=== PATIENT | male | born 1960 | race Caucasian/White ===

== ENCOUNTER → 2016-05-31 | Outpatient (CLI) | payer OTHER ==
[2016-05-31 15:21] LABS: Basophils # (A) 0.1 k/uL (0-0.2); Basophils % (A) 1 %; CH 32.7; CHCM 35.3; Eosinophils # (A) 0.4 k/uL (0-0.7); Eosinophils % (A) 4 %; HCT 40.8 % (39.0-53.0); HDW 2.81; HGB 14.1 gm/dL (13.0-17.5); Luc % (Auto) 1; Lymphocytes # (A) 2.4 k/uL (1.0-4.8); Lymphocytes % (A) 25 %; MCH 32.1 pg (25.0-35.0); MCHC 34.5 g/dL (31.0-37.0); Mean Platelet Volume 6.9; Monocytes # (A) 0.6 k/uL (0-1.0); Monocytes % (A) 6 %; Neutrophils % (A) 63 %; RBC 4.38 m/uL (4.30-5.90); RDW 12.6 % (11.5-15.5); WBC 9.5 k/uL (3.8-10.6)
[2016-05-31 15:22] LABS: Appearance,Urine Clear (Clear); Bilirubin,Urine Negative (Negative); Glucose,Urine (UA) Negative (Negative); Ketones,Urine Negative (Negative); Leukocyte Esterase,Urine Negative (Negative); Nitrite,Urine Negative (Negative); PH, Urine 5.5 (5.0-8.0); Protein,Urine Negative (Negative); Specific Gravity,Urine 1.006 (1.001-1.035); UA Billing (MACRO vs. MICRO) CHEM; Urobilinogen,Urine <2.0 mg/dL (<2.0)
[2016-05-31 15:28] LABS: ALT 70 U/L (21-72); AST 40 U/L (17-59); Alkaline Phosphatase 112 U/L (38-126); Anion Gap 13 mmol/L; Blood Urea Nitrogen 20 mg/dL (9-20); Calcium 9.5 mg/dL (8.4-10.2); Carbon Dioxide 26 mmol/L (22-30); Chloride 105 mmol/L (98-107); Glucose 87 mg/dL (74-99); Non-African American GFR(MDRD) >60 (>60 ml/min/1.73 sqM); Potassium 4.3 mmol/L (3.5-5.1); Sodium 144 mmol/L (137-145); Total Bilirubin 0.5 mg/dL (0.2-1.3); Total Protein 7.1 g/dL (6.3-8.2)
[2016-05-31 15:33] LABS: Partial Thromboplastin Time 23.4 sec (22.0-30.0); Prothrombin Time 10.3 sec (9.0-12.0)
== END | disposition home or self-care (01) ==
LOC: LABPAT 15:01
PROVIDERS: ATTEND Orthopaedic Surgery
DX: Z01.812 Encounter for preprocedural laboratory examination (principal)
CPT/HCPCS: 80053; 81003; 85025; 85610; 85730; 87070

== ENCOUNTER 2016-06-02 11:22 | Emergency (ER) | payer OTHER ==
[2016-06-02 11:31] VITALS: TEMP 97.3
--- NOTE | 2016-06-02 11:50 | ED ---
General Adult HPI - General Chief complaint: Dizziness Stated complaint: FEELING FAINT Time Seen by Provider: 06/02/16 11:37 Source: patient, RN notes reviewed Mode of arrival: wheelchair - History of Present Illness Initial comments: Patient is a 55-year-old male who presents emergency room today with a chief complaint of feeling dizzy lightheaded. He does admit that he was in one of the classrooms here at [facility] for education of a hip replacement. He states that he began feeling a little lightheaded in the class got up and went outside to get a cup of coffee. States symptoms seem to progress he went back to tell his instructor. States he was taking over here to the emergency room. States his symptoms have completely resolved at this time. He does admit that he felt some numbness tingling to his hands bilaterally. States the entire event lasted approximately 10 minutes. He does admit that he felt a little lightheaded at times the past but never lasted very long. Patient states he did have breakfast. Patient denies any complaints or symptoms currently at this time. Patient denies any recent fever, chills, shortness of breath, chest pain, back pain, abdominal pain, nausea or vomiting, numbness or tingling, dysuria or hematuria, constipation or diarrhea, headaches or visual changes, or any other complaints. - Related Data Home Medications Medication Instructions Recorded Confirmed Levothyroxine Sodium [Synthroid] 200 mcg PO DAILY 04/21/15 06/02/16 Ibuprofen [Motrin] 800 mg PO TID PRN 05/31/16 06/02/16 Atorvastatin Calcium [Lipitor] 10 mg PO DAILY 06/01/16 06/02/16 HYDROcodone/APAP 7.5-325MG [[place] 1 tab PO BID PRN 06/02/16 06/02/16 7.5-325] Allergies Allergy/AdvReac Type Severity Reaction Status Date / Time No Known Allergies Allergy Verified 06/02/16 12:28 Review of Systems ROS Statement: Those systems with pertinent positive or pertinent negative responses have been documented in the HPI. ROS Other: All systems not noted in ROS Statement are negative. 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 Other SX: RIGHT HAND-INDEX/MIDDLE FINGER sx for injury, RIGHT WRIST sx for injury, LEFT KNEE ARTHROSCOPIC,RIGHT AND LEFT SHOULDER rotator cuff repairs, Past Anesthesia/Blood Transfusion Reactions: No Reported Reaction, Motion Sickness Additional Past Anesthesia/Blood Transfusion Reaction / Comment(s): Pt has never had blood transfusion. Past Psychological History: No Psychological Hx Reported Additional Psychological History / Comment(s): Pt resides with his spouse. He is normally independent. He drives. He uses no assistive devices. Smoking Status: Never smoker Past Alcohol Use History: None Reported Past Drug Use History: None Reported - Past Family History Mother Family Medical History: Osteoarthritis (OA), Thyroid Disorder Additional Family Medical History / Comment(s): Mother is alive and 73 yrs old. She has back problems with surgery Father Family Medical History: CVA/TIA, Diabetes Mellitus, Osteoarthritis (OA) Additional Family Medical History / Comment(s): Father had gout, past alcoholism - he is 77 yrs old. General Exam - General Exam Comments Initial Comments: General: The patient is awake and alert, in no distress, and does not appear acutely ill. Eye: Pupils are equal, round and reactive to light, extra-ocular movements are intact. No nystagmus. There is normal conjunctiva bilaterally. No signs of icterus. Ears, nose, mouth and throat: There are moist mucous membranes and no oral lesions. Neck: The neck is supple, there is no tenderness or JVD. Cardiovascular: There is a regular rate and rhythm. No murmur, rub or gallop is appreciated. Respiratory: Lungs are clear to auscultation, respirations are non-labored, breath sounds are equal. No wheezes, stridor, rales, or rhonchi. Gastrointestinal: Soft, non-distended, non-tender abdomen without masses or organomegaly noted. There is no rebound or guarding present. No CVA tenderness. Bowel sounds are unremarkable. Musculoskeletal: Normal ROM, no tenderness. Strength 5/5. Sensation intact. Pulses equal bilaterally 2+. Neurological: A&O x 3. CN II-XII intact, There are no obvious motor or sensory deficits. Coordination appears grossly intact. Speech is normal. Skin: Skin is warm and dry and no rashes or lesions are noted. Psychiatric: Cooperative, appropriate mood & affect, normal judgment. Course Vital Signs 06/02/16 06/02/16 11:28 13:41 Temperature 97.3 F L Pulse Rate 72 Pulse Rate [ 80 Right Sitting] Pulse Rate [ 88 Right Standing] Pulse Rate [ 68 Right Supine] Respiratory 20 18 Rate Blood Pressure 121/76 Blood Pressure 126/70 [Right Arm Sitting] Blood Pressure 129/73 [Right Arm Standing] Blood Pressure 120/61 [Right Arm Supine] O2 Sat by Pulse 100 97 Oximetry EKG Findings - EKG Comments: EKG Findings:: EKG performed at 1202: Shows sinus bradycardia 54 beats per minute. [place] interval 116. QRS 88. QT/QTc 428/45. No acute ST changes. Medical Decision Making - Medical Decision Making Case discussed in detail with attending physician Dr. Hyde. Patient reexamined at this time shows no signs of distress. His EKG shows normal sinus rhythm. EKG heart rate 54 bpm. Patient was in the 70s triaged. Orthostatic vitals performed does show mild elevation of heart rate. Blood pressure stable. Patient given fluids here in emergency room. He denies any complaints or symptoms at this time. States like be discharged home. Patient will be discharged home advised follow-up family doctor in the next 1-2 days. He is advised return if any symptoms increase or worsen or for any other concerns. - Lab Data Result diagrams: 06/02/16 12:04 06/02/16 12:04 Lab Results 06/02/16 06/02/16 06/02/16 Range/Units 12:04 12:04 12:06 WBC 11.4 H (3.8-10.6) k/uL RBC 4.82 (4.30-5.90) m/uL Hgb 15.4 (13.0-17.5) gm/dL Hct 45.0 (39.0-53.0) % MCV 93.4 (80.0-100.0) fL MCH 31.9 (25.0-35.0) pg MCHC 34.2 (31.0-37.0) g/dL RDW 12.5 (11.5-15.5) % Plt Count 352 (150-450) k/uL Neutrophils % 58 % Lymphocytes % 30 % Monocytes % 7 % Eosinophils % 3 % Basophils % 1 % Neutrophils # 6.7 (1.3-7.7) k/uL Lymphocytes # 3.5 (1.0-4.8) k/uL Monocytes # 0.8 (0-1.0) k/uL Eosinophils # 0.3 (0-0.7) k/uL Basophils # 0.1 (0-0.2) k/uL Sodium 143 (137-145) mmol/L Potassium 4.5 (3.5-5.1) mmol/L Chloride 105 (98-107) mmol/L Carbon Dioxide 24 (22-30) mmol/L Anion Gap 14 mmol/L BUN 20 (9-20) mg/dL Creatinine 0.86 (0.66-1.25) mg/dL Est GFR (MDRD) Af Amer >60 (>60 ml/min/1.73 sqM) Est GFR (MDRD) Non-Af >60 (>60 ml/min/1.73 sqM) Glucose 104 H (74-99) mg/dL POC Glucose (mg/dL) 100 H (75-99) mg/dL POC Glu Cut Off Saw Operator Metal ID Carissa, Mary Grace Calcium 10.0 (8.4-10.2) mg/dL Total Bilirubin 0.7 (0.2-1.3) mg/dL AST 35 (17-59) U/L ALT 65 (21-72) U/L Alkaline Phosphatase 102 (38-126) U/L Total Protein 7.4 (6.3-8.2) g/dL Albumin 4.7 (3.5-5.0) g/dL Disposition Clinical Impression: Lightheaded Disposition: HOME SELF-CARE Condition: Good Instructions: Dizziness (ED) Additional Instructions: Please increase oral fluids as discussed. Please follow-up family doctor over the next 2 days. Please return to emergency room if any symptoms increase worsen or for any other concerns. Time of Disposition: 13:45
[2016-06-02 12:09] LABS: Glucose,Whole Blood 100 mg/dL (75-99)
--- NOTE | 2016-06-02 12:23 | XR ---
EXAMINATION TYPE: XR chest 2V DATE OF EXAM: 06/02/2016 12:19 PM COMPARISON: NONE HISTORY: Dizziness and nausea FINDINGS: The lungs are clear and there is no pneumothorax, pleural effusion, or focal pneumonia. Hypertrophi c change of the spine noted. IMPRESSION: 1. No acute process.
[2016-06-02 12:29] LABS: Basophils # (A) 0.1 k/uL (0-0.2); Basophils % (A) 1 %; CH 33.1; CHCM 35.6; Eosinophils # (A) 0.3 k/uL (0-0.7); Eosinophils % (A) 3 %; HDW 2.79; HGB 15.4 gm/dL (13.0-17.5); Luc # (Auto) 0.18; Luc % (Auto) 2; Lymphocytes # (A) 3.5 k/uL (1.0-4.8); Lymphocytes % (A) 30 %; MCH 31.9 pg (25.0-35.0); MCHC 34.2 g/dL (31.0-37.0); MCV 93.4 fL (80.0-100.0); Monocytes # (A) 0.8 k/uL (0-1.0); Monocytes % (A) 7 %; Neutrophils # (A) 6.7 k/uL (1.3-7.7); Neutrophils % (A) 58 %; RBC 4.82 m/uL (4.30-5.90); RDW 12.5 % (11.5-15.5); WBC 11.4 k/uL (3.8-10.6); WBC (Perox) 11.79
[2016-06-02 12:41] LABS: ALT 65 U/L (21-72); AST 35 U/L (17-59); Alkaline Phosphatase 102 U/L (38-126); Anion Gap 14 mmol/L; Blood Urea Nitrogen 20 mg/dL (9-20); Carbon Dioxide 24 mmol/L (22-30); Chloride 105 mmol/L (98-107); Glucose 104 mg/dL (74-99); Non-African American GFR(MDRD) >60 (>60 ml/min/1.73 sqM); Potassium 4.5 mmol/L (3.5-5.1); Sodium 143 mmol/L (137-145); Total Bilirubin 0.7 mg/dL (0.2-1.3); Total Protein 7.4 g/dL (6.3-8.2)
[2016-06-02 13:42] VITALS: BP 120/61; PULSE 68; RESP 18
[2016-06-02] MEDS ORDERED: SODIUM CHLORIDE 0.9% 500 ML IV ONE (13:42)
== END 2016-06-02 14:33 | disposition home or self-care (01) ==
LOC: EC 11:22
DX: R42 Dizziness and giddiness (principal); E07.9 Disorder of thyroid, unspecified; Z79.899 Other long term (current) drug therapy
CPT/HCPCS: 36415; 71020; 80053; 85025; 93005; 96360; 99284

== ENCOUNTER → 2016-06-02 | Outpatient (CLI) | payer OTHER ==
[2016-06-02 11:02] LABS: Prostate Specific Antigen 2.78 ng/mL (0.00-4.00)
== END | disposition home or self-care (01) ==
LOC: LABWHC1 06:39
PROVIDERS: ATTEND Family Medicine
DX: Z00.00 Encounter for general adult medical examination without abnormal findings (principal)
CPT/HCPCS: 36415; 80061; 84153

== ENCOUNTER 2016-06-12 06:23 | Inpatient (IN) | payer OTHER ==
[2016-05-31 16:52] VITALS: BMI 33.3
[~2016-06-12 06:23] MED LIST: ACETAMINOPHEN TAB 500 MG TAB PO ONE; MELOXICAM 7.5 MG TAB PO ONE; ONDANSETRON 4 MG/2 ML VIAL IVP ONE; TRANEXAMIC ACID 1,000 MG in SODIUM CHLORIDE 0.9% 100 ML IVPB ONE; ceFAZolin 2 GM in SODIUM CHLORIDE 0.9% 100 ML IVPB ONE
[2016-06-12] MEDS ORDERED: ONDANSETRON 4 MG/2 ML VIAL IVP ONE ×2 (06:57→07:08)
[2016-06-12] MEDS ORDERED: SCOPOLAMINE 1.5MG/72HR PATCH TRANSDERM ONE ×2 (06:57→07:08)
[2016-06-12] MEDS ORDERED: MIDAZOLAM 2 MG/2 ML VIAL IV PRN (06:57)
[2016-06-12] MEDS ORDERED: HYDROmorphone 1 MG/ML 1 ML SYRINGE IVP PRN ×3 (06:57→10:31)
[2016-06-12] MEDS ORDERED: LIDOCAINE 1% 20 ML VIAL (10MG/ML) FOR IV START INTRADERMA PRN (06:57)
[2016-06-12] MEDS ORDERED: DEXAMETHASONE SOD PHOSPHATE 10 MG/ML 1 ML VIAL IV ONE ×2 (06:57→07:07)
[2016-06-12] MEDS ORDERED: LACTATED RINGERS 1,000 ML IV ONE ×4 (07:00→09:08)
[2016-06-12] MEDS ORDERED: LIDOCAINE 1% 20 ML VIAL (10MG/ML) FOR IV START INTRADERMA ONE (07:08)
[2016-06-12] MEDS ORDERED: ROPIVACAINE 246.25 MG, EPINEPHrine 0.5 MG, KETOROLAC 30 MG, cloNIDine HCL/PF 80 MCG, WA... MISCELLANE STA ×5 (07:50)
[2016-06-12] MEDS ORDERED: fentaNYL (PF) 50 MCG/ML 2 ML AMP ONE (08:10)
[2016-06-12] MEDS ORDERED: TRANEXAMIC ACID 1,000 MG/10 ML VIAL ONE (08:10)
[2016-06-12] MEDS ORDERED: ePHEDrine 50 MG/ML 1 ML AMP ONE (08:10)
[2016-06-12] MEDS ORDERED: SODIUM CHLORIDE 0.9% 100 ML BAG ONE (08:10)
[2016-06-12] MEDS ORDERED: PROPOFOL 10 MG/ML 20 ML VIAL IV ONE (08:10)
[2016-06-12] MEDS ORDERED: MIDAZOLAM 2 MG/2 ML VIAL ONE (08:10)
[2016-06-12] MEDS ORDERED: ceFAZolin 3,000 MG in SODIUM CHLORIDE 0.9% IRRIGATIO 3,000 ML IRRIGATION ONE (10:09)
[2016-06-12] MEDS ORDERED: ONDANSETRON 4 MG/2 ML VIAL IVP PRN (10:31)
[2016-06-12] MEDS ORDERED: MAGNESIUM HYDROXIDE 2,400 MG/10 ML CUP PO PRN (10:31)
[2016-06-12] MEDS ORDERED: ACETAMINOPHEN TAB 325 MG TAB PO PRN (10:31)
[2016-06-12] MEDS ORDERED: TEMAZEPAM 15 MG CAP PO PRN (10:31)
[2016-06-12] MEDS ORDERED: HYDROcodone/APAP 5-325MG 1 EACH TAB PO PRN (10:31)
[2016-06-12] MEDS ORDERED: NALOXONE 0.4 MG/ML 1 ML VIAL IV PRN (10:31)
--- NOTE | 2016-06-12 10:48 | XR ---
EXAMINATION TYPE: XR Hip Limited RT DATE OF EXAM: 06/12/2016 10:43 AM COMPARISON: NONE HISTORY: Post hip surgery TECHNIQUE: Single AP view right hip FINDINGS: Right hip prosthesis has been placed. No acute fractures are evident. Postsurgical changes are within the soft tissues. IMPRESSION: 1. Normal post right hip replacement.
[2016-06-12] MEDS: LACTATED RINGERS 1,000 ML IV SCH ×2 (11:12→20:52)
[2016-06-12] MEDS: HYDROcodone/APAP 5-325MG 1 EACH TAB PO PRN ×2 (12:49→18:02)
[2016-06-12] MEDS: hydrOXYzine PAMOATE 25 MG CAP PO PRN ×2 (12:50→18:03)
[2016-06-12] MEDS: HYDROmorphone 1 MG/ML 1 ML SYRINGE IVP PRN ×2 (14:16→22:38)
[2016-06-12] MEDS: LEVOTHYROXINE 100 MCG TAB PO SCH (15:54)
--- NOTE | 2016-06-12 16:13 | CONS ---
DATE OF CONSULTATION: 06/12/2016 REASON FOR CONSULTATION: Medical management requested by Dr. Shaw. CONSULTATION: This is a pleasant 55-year-old patient of Dr. Fitch who has undergone right total hip arthroplasty. His is at the bedside. Post procedure patient is comfortable. No chest pain, shortness of breath, nausea, vomiting. Patient's chronic stable medical conditions include hyperlipidemia, hypothyroid. Denies any cardiac history. REVIEW OF SYSTEMS: CONSTITUTIONAL: None. HEENT: None. RESPIRATORY: None. CARDIOVASCULAR: None. GASTROINTESTINAL: None. GENITOURINARY: None. MUSCULOSKELETAL: Pain in the joints. DERMATOLOGICAL: None. HEMATOLOGICAL: None. LYMPHATIC: None. PSYCHIATRY: None. NEUROLOGICAL: None. PAST MEDICAL HISTORY: 1. Hypertension. 2. Hyperlipidemia. 3. Hypothyroid. 4. Arthritis in lower back. PAST SURGICAL HISTORY: 1. Left total hip arthroplasty. 2. Right hand middle and index finger surgery for injury. 3. Right wrist surgery. 4. Right and left shoulder rotator cuff repair. SOCIAL HISTORY: . Never smoked. No alcohol. HOME MEDICATIONS: 1. Synthroid 200 mcg a day. 2. Motrin 800 mg p.o. t.i.d. p.r.n. 3. [place] 7.5 one tablet p.o. b.i.d. p.r.n. 4. Lipitor 10 mg p.o. daily. ALLERGIES: NONE. On examination, temperature 97.9, pulse 81, respiration 16, blood pressure 164/87, pulse ox 97% on room air. Repeat blood pressure 114/61. GENERAL APPEARANCE: Well built; BMI of 33.3. Sitting up, comfortable. EYES: Pupils equal. Conjunctivae normal. HEENT: External appearance of nose and ears normal. Oral cavity normal. NECK: JVD not raised. Mass not palpable. RESPIRATORY: Effort normal. Lungs are clear. CARDIOVASCULAR: First and second sounds normal. No edema. ABDOMEN: Soft, non-tender. Liver and spleen not palpable. LYMPHATIC: No lymph node palpable in neck or axillae. PSYCHIATRY: Alert and oriented x3. Mood and affect normal. NEUROLOGICAL: Pupils equal. Cranial nerves grossly intact. Power and sensation grossly intact. INVESTIGATIONS: Blood work from 05/31/16 shows a white count of 9.5, hemoglobin 14.1, potassium 4.3. BUN and creatinine are normal. Triglycerides 258. ASSESSMENT: 1. Right total hip arthroplasty. 2. Obesity; body mass index of 33.3. 3. Hypothyroidism, chronic. 4. Hypertriglyceridemia. PLAN: Home medications will be resumed. Patient is on aspirin 325 twice a day for DVT prophylaxis per Dr. Shaw. Care was discussed with the patient and his . Questions were answered. Thank you, Dr. Shaw.
[2016-06-12] MEDS: ceFAZolin 2 GM in SODIUM CHLORIDE 0.9% 100 ML IVPB SCH (16:34)
[2016-06-12] MEDS: SENNOSIDES-DOCUSATE SODIUM 1 EACH TAB PO SCH (20:51)
[2016-06-12] MEDS: ASPIRIN 325 MG TAB PO SCH (20:51)
[2016-06-13] MEDS: ceFAZolin 2 GM in SODIUM CHLORIDE 0.9% 100 ML IVPB SCH (00:49)
[2016-06-13] MEDS: HYDROcodone/APAP 5-325MG 1 EACH TAB PO PRN (05:29)
[2016-06-13] MEDS: LEVOTHYROXINE 100 MCG TAB PO SCH (05:29)
[2016-06-13] MEDS: hydrOXYzine PAMOATE 25 MG CAP PO PRN (05:30)
[2016-06-13 07:56] LABS: Basophils % (A) 0 %; CH 32.6; CHCM 34.1; Eosinophils % (A) 0 %; HDW 2.66; Luc % (Auto) 1; Lymphocytes # (A) 2.1 k/uL (1.0-4.8); Lymphocytes % (A) 19 %; MCH 32.2 pg (25.0-35.0); MCHC 33.5 g/dL (31.0-37.0); MCV 96.1 fL (80.0-100.0); Monocytes # (A) 0.8 k/uL (0-1.0); Monocytes % (A) 7 %; Neutrophils # (A) 8.5 k/uL (1.3-7.7); Neutrophils % (A) 73 %; RBC 3.64 m/uL (4.30-5.90); RDW 12.9 % (11.5-15.5); WBC 11.5 k/uL (3.8-10.6)
[2016-06-13 07:58] LABS: HGB 11.7 gm/dL (13.0-17.5)
[2016-06-13] MEDS: LACTATED RINGERS 1,000 ML IV SCH (08:02)
[2016-06-13] MEDS: ATORVASTATIN 10 MG TAB PO SCH (08:21)
[2016-06-13] MEDS: FAMOTIDINE 20 MG TAB PO SCH (08:21)
[2016-06-13] MEDS: MULTIVITAMINS, THERA 1 EACH TAB PO SCH (08:21)
[2016-06-13] MEDS: ASPIRIN 325 MG TAB PO SCH ×2 (08:21→21:34)
[2016-06-13] MEDS: MELOXICAM 7.5 MG TAB PO SCH (08:49)
[2016-06-13] MEDS: HYDROmorphone 1 MG/ML 1 ML SYRINGE IVP PRN (10:01)
[2016-06-13] MEDS ORDERED: HYDROcodone/APAP 7.5-325MG 1 EACH TAB PO PRN ×2 (10:20)
--- NOTE | 2016-06-13 11:00 | P.CONS ---
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 Keane is a pleasant 55 year old male with multiple sites of arthritis who is status post right total hip arthroplasty on 06/12/2016 after multiple non surgical attempts to improve his function. He has previously undergone left total hip with post operative radiation for prophylaxis of heterotropic ossification. He is now being seen for evaluation of radiation for his right hip. He describes minimal past medical history including hyperlipiedmia, arthritis, and hypothyroidism. His only previous radiation was to his contralateral hip-left. He denies any chest pain, shortness of breathe, nausea, vomiting. His pain is appropriately controlled. 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 Other SX: RIGHT HAND-INDEX/MIDDLE FINGER sx for injury, RIGHT WRIST sx for injury, LEFT KNEE ARTHROSCOPIC,RIGHT AND LEFT SHOULDER rotator cuff repairs, Past Anesthesia/Blood Transfusion Reactions: No Reported Reaction, Motion Sickness Additional Past Anesthesia/Blood Transfusion Reaction / Comm: Pt has never had blood transfusion. Past Psychological History: No Psychological Hx Reported Additional Psychological History / Comment(s): Pt resides with his spouse. He is normally independent. He drives. He uses no assistive devices. Smoking Status: Never smoker Past Alcohol Use History: None Reported Past Drug Use History: None Reported - Past Family History Mother Family Medical History: Osteoarthritis (OA), Thyroid Disorder Additional Family Medical History / Comment(s): Mother is alive and 73 yrs old. She has back problems with surgery Father Family Medical History: CVA/TIA, Diabetes Mellitus, Osteoarthritis (OA) Additional Family Medical History / Comment(s): Father had gout, past alcoholism - he is 77 yrs old. Medications and Allergies Home Medications Medication Instructions Recorded Confirmed Type Levothyroxine Sodium [Synthroid] 200 mcg PO DAILY 04/21/15 06/12/16 History Ibuprofen [Motrin] 800 mg PO TID PRN 05/31/16 06/12/16 History Atorvastatin Calcium [Lipitor] 10 mg PO DAILY 06/01/16 06/12/16 History HYDROcodone/APAP 7.5-325MG [[place] 1 tab PO BID PRN 06/02/16 06/12/16 History 7.5-325] Allergies Allergy/AdvReac Type Severity Reaction Status Date / Time No Known Allergies Allergy Verified 06/12/16 11:17 Physical Exam Vitals: Vital Signs Temp Pulse Resp BP Pulse Ox 06/13/16 07:14 97.5 F L 60 16 114/49 95 06/13/16 01:40 98.2 F 50 L 18 110/55 98 06/12/16 19:47 98.1 F 57 L 18 110/55 95 06/12/16 12:45 67 112/66 06/12/16 12:30 57 L 110/62 06/12/16 12:15 55 L 116/60 06/12/16 12:00 54 L 107/54 06/12/16 11:45 60 112/68 06/12/16 11:30 60 109/74 06/12/16 11:15 57 L 106/73 06/12/16 11:00 98.0 F 66 16 114/61 92 L 06/12/16 10:54 60 18 106/58 94 L Intake and Output 06/12/16 06/13/16 06/13/16 22:59 06:59 14:59 Intake Total 1000 Output Total 1500 Balance 1000 -1500 Intake: IV 1000 Lactated Ringers 1,000 ml 900 @ 100 mls/hr IV .Q10H SAMMY Rx#:[id number] ceFAZolin 2 gm In Sodium 100 Chloride 0.9% 100 ml @ 100 mls/hr IVPB ONCE ONE Rx#:[id number] Output: Urine 1500 Uretheral (Ling) 1500 Other: Voiding Method Indwelling Catheter - Constitutional General appearance: average body habitus - EENT Eyes: EOMI - Neck Neck: normal ROM - Respiratory Respiratory: bilateral: CTA - Cardiovascular Rhythm: regular - Musculoskeletal Musculoskeletal: right sided weakness Results CBC & Chem 7: 01/17/17 06:55 Labs: Abnormal Lab Results - Last 24 Hours (Table) 06/13/16 Range/Units 06:55 WBC 11.5 H (3.8-10.6) k/uL RBC 3.64 L (4.30-5.90) m/uL Hgb 11.7 L D (13.0-17.5) gm/dL Hct 35.0 L (39.0-53.0) % Neutrophils # 8.5 H (1.3-7.7) k/uL Assessment and Plan Plan: Mr. Keane is a 55 year old male status post right hip arthroplasty who now presents for external beam radiation to his right hip joint and surrounding soft tissue to decrease his risk for heterotropic ossification. Postoperative RT has been shown to be an effective prophylactic treatment to prevent heterotropic bone from partially or completly ankylosing the joint space, causing pain and/or limiting the range of motion. We therefore intend on delivering a single fraction of external beam radiation to a total dose of 700cGy in 1 fraction with 23MV photons in an AP/PA beam arrangement. The patient will be treated prior to returning to his hospital bed, this morning . A discussion of risks and side effects of treatment was had including, but not limited to: Skin redness, irritation, decreased sperm counts, risk of secondary malignancy. A consent was signed prior to simulation.
[2016-06-13] MEDS ORDERED: HYDROcodone/APAP 10-325MG 1 EACH TAB PO PRN (15:02)
--- NOTE | 2016-06-13 16:55 | P.PN ---
Subjective Principal diagnosis: Status post right total hip arthroplasty This is a pleasant 55-year-old gentleman who is status post right total hip arthroplasty. Today's postoperative day #1. The patient is seen and evaluated at bedside this afternoon. He had some difficulty with pain control earlier today and his [place] dose has been increased to 7.5 mg. He otherwise has no other complaints. He denies nausea or vomiting. No lightheadedness or shortness of breath. He did undergo radiation today. Objective - Vital Signs Vital signs: Vital Signs Temp 97.7 F 06/13/16 14:15 Pulse 52 L 06/13/16 14:15 Resp 17 06/13/16 14:15 BP 111/52 06/13/16 14:15 Pulse Ox 93 L 06/13/16 14:15 Intake & Output 06/12/16 06/13/16 06/13/16 18:59 06:59 18:59 Intake Total 4925 1000 580 Output Total 1700 1700 Balance 3225 1000 -1120 Weight 99.337 kg Intake: IV 4800 1000 100 Lactated Ringers 1,000 ml 900 100 @ 100 mls/hr IV .Q10H SAMMY Rx#:[id number] ceFAZolin 2 gm In Sodium 100 Chloride 0.9% 100 ml @ 100 mls/hr IVPB ONCE ONE Rx#:[id number] Oral 125 480 Output: Urine 1350 1700 Uretheral (Ling) 1500 Estimated Blood Loss 350 Other: Voiding Method Indwelling Catheter Indwelling Catheter - Exam The patient does not appear in acute distress. Alert and orientated 3. Dressing is clean dry and intact. Incision appears fine with no erythema or active drainage. Calf is soft and nontender. Good foot and ankle motion without difficulty. Sensation and circulatory status is intact. - Labs CBC & Chem 7: 06/13/16 06:55 Labs: Abnormal Lab Results - Last 24 Hours (Table) 06/13/16 Range/Units 06:55 WBC 11.5 H (3.8-10.6) k/uL RBC 3.64 L (4.30-5.90) m/uL Hgb 11.7 L D (13.0-17.5) gm/dL Hct 35.0 L (39.0-53.0) % Neutrophils # 8.5 H (1.3-7.7) k/uL Assessment and Plan (1) Primary osteoarthritis of right hip Status: Acute (2) Status post right hip replacement Status: Acute Plan: Continue with routine postoperative care. Physical therapy, pain control and Anticoagulation. Appreciate input from medicine.
[2016-06-13] MEDS: HYDROcodone/APAP 10-325MG 1 EACH TAB PO PRN ×2 (17:08→23:02)
--- NOTE | 2016-06-13 18:23 | PN ---
DATE OF SERVICE: 06/13/2016 PRESENTING COMPLAINT: Right hip surgery. INTERVAL HISTORY: Patient is status post right hip surgery, doing well. No chest pain, shortness of breath. No nausea, vomiting. Comfortable. Doing well. Review of systems done for constitutional, cardiovascular, GI, pulmonary; relevant findings as above. Current medications are reviewed. On examination, temperature 97.5, pulse 66, respiration 16, blood pressure 104/49, pulse ox 95% on room air. GENERAL APPEARANCE: Sitting up in a chair, comfortable. EYES: Pupils equal. Conjunctivae normal. NECK: JVD not raised. Mass not palpable. RESPIRATORY: Effort normal. Lungs are clear. CARDIOVASCULAR: First and second sounds normal. No edema. ABDOMEN: Soft. Nontender. Liver and spleen not palpable. PSYCHIATRY: Alert and oriented times. Mood and affect normal. INVESTIGATIONS: Hemoglobin 11.7. White count 11.5. ASSESSMENT: 1. Right total hip arthroplasty. 2. Obesity, body mass index of 33.3. 3. Hypothyroidism, chronic. 4. Hypertriglyceridemia. 5. Acute blood loss anemia as expected from surgery. PLAN: The patient is stable. Continue current medication and treatment plan. Care was discussed with the patient.
[2016-06-13 19:16] VITALS: RESP 16
[2016-06-13] MEDS: SENNOSIDES-DOCUSATE SODIUM 1 EACH TAB PO SCH (21:34)
[2016-06-14] MEDS: HYDROcodone/APAP 10-325MG 1 EACH TAB PO PRN ×2 (05:14→09:59)
[2016-06-14] MEDS: LEVOTHYROXINE 100 MCG TAB PO SCH (05:40)
--- NOTE | 2016-06-14 08:04 | P.DS ---
Providers Date of admission: 06/12/16 06:23 Expected date of discharge: 06/14/16 Attending physician: Gilbert Shaw Consults: 06/12/16 10:31 Consult Physician Routine Consulting Provider: Andrew Alfaro Consult Reason/Comments: medical management Do you want consulting provider notified?: Yes 06/12/16 16:08 Consult Physician Routine Consulting Provider: Jose Manuel Lou Consult Reason/Comments: radiation tx right hip Do you want consulting provider notified?: Yes Primary care physician: Luis Fitch - Discharge Diagnosis(es) (1) Primary osteoarthritis of right hip Current Visit: Yes Status: Acute (2) Status post right hip replacement Current Visit: Yes Status: Acute Hospital Course: This is a 55-year-old male with known history of degenerative arthritis of the right hip. The patient presents for evaluation. After discussion and consideration patient elects to proceed with total hip arthroplasty. The patient is seen preoperatively by Dr. Fitch and cleared for surgery. Patient is admitted to [facility] on 06/12/2016 for total hip arthroplasty. The procedures performed without complication or sequelae. The patient is doing well postoperatively. Labs and vital signs are stable on day of discharge. On day of discharge patient's hip incision is healing well. There is minimal erythema. There is no drainage noted at this time. There is minimal soft tissue swelling to the hip and thigh. Patient has full foot and ankle motion without difficulty or pain. Neurovascular status to the right lower extremity is intact. Patient is discharged to home in good condition. Please see med rec for accurate list of home medications. Plan - Discharge Summary New Discharge Prescriptions: Aspirin 325 mg PO BID #120 tab HYDROcodone/APAP 10-325MG [[place] 10-325] 1 - 2 each PO Q6H PRN #90 tab PRN Reason: Pain Sennosides-Docusate Sodium [Senokot-S] 1 tab PO BID #60 tablet Discharge Medication List Levothyroxine Sodium [Synthroid] 200 mcg PO DAILY 04/21/15 [History] Ibuprofen [Motrin] 800 mg PO TID PRN 05/31/16 [History] Atorvastatin Calcium [Lipitor] 10 mg PO DAILY 06/01/16 [History] HYDROcodone/APAP 7.5-325MG [[place] 7.5-325] 1 tab PO BID PRN 06/02/16 [History] Aspirin 325 mg PO BID #120 tab 06/14/16 [Rx] HYDROcodone/APAP 10-325MG [[place] 10-325] 1 - 2 each PO Q6H PRN #90 tab 06/14/16 [Rx] Sennosides-Docusate Sodium [Senokot-S] 1 tab PO BID #60 tablet 06/14/16 [Rx] Follow up Appointment(s)/Referral(s): Gilbert Shaw MD [STAFF PHYSICIAN] - 2 Weeks Patient Instructions/Handouts: *Surgery [facility] - Scopalamine Patch Instructions Activity/Diet/Wound Care/Special Instructions: No home care - Schedule outpatient therapy appointment with [facility] - [phone] Walker - has at home 50% wt bearing w walker May shower if no drainage from incision. Discharge Disposition: HOME SELF-CARE
[2016-06-14 08:13] VITALS: BP 124/61; PULSE 64; TEMP 98.7
[2016-06-14] MEDS: FAMOTIDINE 20 MG TAB PO SCH (09:58)
[2016-06-14] MEDS: ATORVASTATIN 10 MG TAB PO SCH (09:58)
[2016-06-14] MEDS: MELOXICAM 7.5 MG TAB PO SCH (09:58)
[2016-06-14] MEDS: ASPIRIN 325 MG TAB PO SCH (09:58)
[2016-06-14] MEDS: hydrOXYzine PAMOATE 25 MG CAP PO PRN (10:00)
[2016-06-14] MEDS: MULTIVITAMINS, THERA 1 EACH TAB PO SCH (13:06)
--- NOTE | 2016-06-14 20:43 | PN ---
DATE OF SERVICE: 06/14/2016 PRESENTING COMPLAINT: Right hip surgery. INTERVAL HISTORY: This patient is status post right hip surgery, doing well. Saw the patient earlier today. Comfortable. No chest pain or shortness of breath. No nausea or vomiting. Did tolerate his diet. Review of systems done for constitutional, cardiovascular, GI, pulmonary; relevant findings as above. Current medications are reviewed. On examination, temperature 98.7, pulse 64, respiration 16, blood pressure 120/61, pulse ox 95% on room air. GENERAL APPEARANCE: Sitting in a chair, comfortable. EYES: Pupils equal. Conjunctivae normal. NECK: JVD not raised. Mass not palpable. RESPIRATORY: Effort normal. Lungs are clear. CARDIOVASCULAR: First and second sounds normal. No edema. ABDOMEN: Soft, nontender. Liver and spleen not palpable. PSYCHIATRY: Alert and oriented x3. Mood and affect normal. INVESTIGATIONS: No blood work from today. ASSESSMENT: 1. Right total hip arthroplasty. 2. Obesity; body mass index 33.3. 3. Hypothyroidism, chronic. 4. Hypertriglyceridemia. 5. Acute blood loss anemia, as expected from surgery. PLAN: Stable. Continue current medication and treatment plan. Will follow.
--- NOTE | 2016-06-15 13:23 | P.OP ---
Date of Procedure: 06/12/16 Procedure(s) Performed: PREOPERATIVE DIAGNOSIS: Right hip severe osteoarthritis POSTOPERATIVE DIAGNOSIS: Right hip severe osteoarthritis OPERATION: Right hip total replacement arthroplasty (uncemented implantation with metal on polyethylene articulation). ANESTHESIA: Spinal ESTIMATED BLOOD LOSS: 350 ml. DATA GOVERNANCE CONSULTANT: Shira Burks PA-C (assistance with: patient positioning, retraction, exposure, hemostasis, leg positioning, implantation, irrigation, closure, dressing) COMPLICATIONS: None apparent. COMPONENTS IMPLANTED: Aniyah Continuum acetabular cup with cluster holes; 15 elevated liner, 32 mm id; Aniyah VerSys Fiber Metal mid coat stem; VerSys 32 mm femoral head with +7 mm neck length extension INDICATIONS: Mr. Keane is a 55-year-old male with significant end-stage osteoarthritis involving the right hip and commensurate severe symptoms. He presents to the operating room today for total hip replacement. I have discussed the steps of the operation as well as potential risks and complications as being inclusive of, but not limited to: Leading, infection, scarring, discomfort, or vessel and/or nerve damage, need for further surgery, loosening, dislocation, wear, osteolysis, limb length inequality, fracture, blood clot, pulmonary embolism, , persistent limp, and other risks. The patient is aware these risks and wishes to proceed with surgery and has signed a consent form. PROCEDURE: After appropriate consent was obtained, the patient was taken to the operating room and placed in supine position. Spinal anesthetic was administered and after confirmation of adequate anesthesia, the patient was placed into the lateral decubitus position with the right side up. Care was taken to make sure that all pressure points were adequately padded and he was stabilized to the table with a [place] hip positioner. The right hip was prepped and draped in the usual aseptic fashion using a combination of ChloraPrep and alcohol. [place] drape was used for the case and the patient received intravenous antibiotics prior to the incision. "Time out" was called , confirming patient identity, side, procedure, and administration of antibiotics. The incision was created directly over the greater trochanter and carried slightly posteriorly for a posterior approach to the hip. The incision was then deepened down to subcutaneous tissue and fascia nicole. Fascia nicole was split in line with the incision and split proximally along the fibers of the gluteus fan. The underlying fibers of the muscle were teased apart using finger dissection and bleeding vessels were picked up and coagulated. Retractor was then placed posteriorly consisting of a blunt Pa. The short external rotators and capsule were exposed using good visualization of the attachment of the external rotators to the femur was established. The short external rotators and capsule were released using electrocautery from their femoral attachments. A hockey stick shaped incision was created in the capsule. Joint fluid was evacuated and the patient's hip was able to be dislocated fairly easily. The patient's femoral head was severely arthritic with eburnated bone present and a 360 degrees hardy of osteophytes. The femoral neck cut was created approximately 1 cm superior to the lesser trochanter using a reciprocating saw. The femoral head and neck fragment was removed and attention was then directed to the acetabulum. An anterior acetabular retractor was applied followed by posterior retraction of the capsule with a [place] retractor. This afforded good visualization into the acetabular cavity. Soft tissue was removed and residual cartilage within the acetabular vault was removed using a curette. Labrum was removed using a long-handled knife. Attention was then directed to reaming. The size 44 reamer was used first, followed by increasing increments until the final size reamer was used. Please see the implantation sheet for exact sizes used for the components. Once the final reamer had been utilized to expand the socket it was noted that there was a good supportive bone around the acetabular socket and no further reaming needed to be performed. The trial the same size as the last reamer used was then impacted into the acetabular vault and found to have good fit. The acetabular component, one size (2mm) greater than the trial was then called for. The cluster holes were placed posteriorly and the component was impacted in a position of approximately 40 degrees abduction and 20 degrees anteversion. This matched this patient's inupiat anteversion and it was noted that the cup had excellent stability without need for additional screw fixation. Attention was then directed to the acetabular liner. The anteversion and abduction angle of the component was noted to be very good. A 15 elevated liner was used and locked into position. Osteophytes around the posterior and inferior aspect of the acetabulum were trimmed as necessary to prevent any impingement. Attention was then directed back to the proximal femur. Retractors were placed around the proximal femur and box osteotome was used followed by canal finder and trochanteric reamer. Cylindrical reaming was performed. Progressive broaching was then performed starting with a #10 broach and progressing final size, in a position of 15 degrees anteversion. [place] anteversion was within 5 degrees of stem position. The final size broach had excellent fit and fill of the patient's metaphysis and diaphysis. Trial reduction was then performed starting with size 32 mm femoral head and various neck combination of stability , limb length equality, and soft tissue tension. Trial components were then removed. The canal was lavaged and the final size femoral stem component was impacted into position. The implant fit very well and had excellent stability. The femoral head was then impacted onto the [place] taper. Blood and debris were removed from the acetabular component and the hip was then reduced and checked for stability, limb length and soft tissue tension. These parameters found to be satisfactory, the wound was then thoroughly irrigated with normal saline. Final hemostasis was obtained using electrocautery and IV tranexamic acid, 1 g given at the time of prepping and draping, and another 1 g given at the time of closure. Local anesthetic solution consisting of ropivacaine with epinephrine, clonidine, and ketorolac was also used throughout the case targeting the capsule , fascia, and skin. Closure of the capsule was performed meticulously using #3 Vicryl suture. Four [id number] sutures were placed in the posterior capsule along with repair of the external rotators. The fascia nicole was then repaired using combination of #3 Vicryl suture in interrupted fashion and [place]ill and running fashion. 2-0 Vicryl suture was used for the subcutaneous tissues and 3-0 Quill for the skin. Dermabond or Steri-Strips were then applied. The patient tolerated the procedure well. There were no complications and the wound bed was dry and there was no need for drain placement. Sterile dressing was then applied and the patient was carefully removed from the operating room table , placed on the stretcher and was taken to the recovery room in stable condition. Sponge and needle counts were correct.
== END 2016-06-14 12:50 | disposition home or self-care (01) | DRG 470 ==
LOC: 2ORMAIN 06:23 → 3SUR 10:31
PROVIDERS: ADMIT Orthopaedic Surgery; ATTEND Orthopaedic Surgery
PROC: 0SR902A Replacement of Right Hip Joint with Metal on Polyethylene Synthetic Substitute, Uncemented, Open Approach (ICD-10-PCS; principal; 2016-06-12 08:00)
DX: M16.11 Unilateral primary osteoarthritis, right hip (principal); I10 Essential (primary) hypertension; D62 Acute posthemorrhagic anemia; E03.9 Hypothyroidism, unspecified; E78.1 Pure hyperglyceridemia; Z79.82 Long term (current) use of aspirin; Z79.899 Other long term (current) drug therapy
CPT/HCPCS: 73501; 77280; 77295; 77300; 77334; 77336; 77412; 77417; 77470; 85025; 86850; 86900; 86901; 88300; 94760

== ENCOUNTER 2017-07-18 08:10 | Day surgery (SDC) | payer BC, OTHER ==
[2017-07-13 12:22] VITALS: BMI 32.5
[~2017-07-18 08:10] MED LIST changes: -ACETAMINOPHEN TAB 500 MG TAB PO ONE; +LACTATED RINGERS 1,000 ML IV SCH; +LIDOCAINE 1% 20 ML VIAL (10MG/ML) FOR IV START INTRADERMA PRN; -MELOXICAM 7.5 MG TAB PO ONE; -ONDANSETRON 4 MG/2 ML VIAL IVP ONE; -TRANEXAMIC ACID 1,000 MG in SODIUM CHLORIDE 0.9% 100 ML IVPB ONE; -ceFAZolin 2 GM in SODIUM CHLORIDE 0.9% 100 ML IVPB ONE
[2017-07-18 08:31] VITALS: RESP 18; TEMP 97.7
[2017-07-18] MEDS ORDERED: LIDOCAINE 1% 20 ML VIAL (10MG/ML) FOR IV START INTRADERMA ONE (08:31)
[2017-07-18] MEDS ORDERED: LIDOCAINE 1% INJ 10MG/ML (20 ML MDV) ONE (08:55)
[2017-07-18] MEDS ORDERED: PROPOFOL 10 MG/ML 20 ML VIAL IV ONE (08:55)
--- NOTE | 2017-07-18 08:57 | P.GSHP ---
History of Present Illness H&P Date: 07/18/17 CHIEF COMPLAINT: Colon screen HISTORY OF PRESENT ILLNESS: The patient is a 57-year-old male who presents for colon screen. Lower endoscopy was offered for further evaluation and management. PAST MEDICAL HISTORY: Please see list. PAST SURGICAL HISTORY: Please see list. MEDICATIONS: Please see list. ALLERGIES: Please see list. SOCIAL HISTORY: No illicit drug use FAMILY HISTORY: No reports of Crohn disease or ulcerative colitis. REVIEW OF ORGAN SYSTEMS: CONSTITUTIONAL: No reports of fevers or chills. PHYSICAL EXAM: VITAL SIGNS: Stable GENERAL: Well-developed pleasant in no acute distress. HEENT: No scleral icterus. Extraocular movements grossly intact. Moist buccal mucosa. NECK: Supple without lymphadenopathy. CHEST: Unlabored respirations. Equal bilateral excursions. CARDIOVASCULAR: Regular rate and rhythm. Distal 2+ pulses. ABDOMEN: Soft, nontender, nondistended. MUSCULOSKELETAL: No clubbing, cyanosis, or edema. ASSESSMENT: 1. Colon screen. PLAN: 1. 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 hips replaced, RIGHT HAND- INDEX/MIDDLE FINGER sx for injury, RIGHT WRIST sx for injury, LEFT KNEE ARTHROSCOPIC,RIGHT AND LEFT SHOULDER rotator cuff repairs Past Anesthesia/Blood Transfusion Reactions: No Reported Reaction, Motion Sickness Additional Past Anesthesia/Blood Transfusion Reaction / Comment(s): Pt has never had blood transfusion. Smoking Status: Never smoker - Past Family History Mother Family Medical History: Osteoarthritis (OA), Thyroid Disorder Additional Family Medical History / Comment(s): Mother is alive and 73 yrs old. She has back problems with surgery Father Family Medical History: CVA/TIA, Diabetes Mellitus, Osteoarthritis (OA) Additional Family Medical History / Comment(s): Father had gout, past alcoholism - he is 77 yrs old. Medications and Allergies Home Medications Medication Instructions Recorded Confirmed Type Levothyroxine Sodium [Synthroid] 175 mcg PO DAILY 04/21/15 07/18/17 History HYDROcodone/APAP 10-325MG [[place] 1 - 2 each PO Q6H PRN #90 tab 06/14/16 Rx 10-325] Ibuprofen [Motrin] 800 mg PO Q6H PRN 07/13/17 07/18/17 History Allergies Allergy/AdvReac Type Severity Reaction Status Date / Time No Known Allergies Allergy Verified 07/18/17 08:21 Surgical - Exam Vital Signs Temp Pulse Resp BP Pulse Ox 97.7 F 77 18 138/87 97 07/18/17 08:30 07/18/17 08:30 07/18/17 08:30 07/18/17 08:30 07/18/17 08:30
--- NOTE | 2017-07-18 09:15 | P.PCN ---
Date of Procedure: 07/18/17 Description of Procedure: PREOPERATIVE DIAGNOSIS: Colonoscopy screening. POSTOPERATIVE DIAGNOSIS: Colonoscopy screening. Multiple tubular adenomas throughout the colon. Scattered diverticulosis. OPERATION: Colonoscopy to the ileocecal valve and appendiceal orifice. Colonoscopy with multiple hot snare polypectomy. SURGEON: Felecia Pantoja MD. ANESTHESIA: MAC. INDICATIONS: The patient is a 57-year-old male who presents for colonoscopy screening. Benefits and risks were described and informed consent was obtained. DESCRIPTION OF PROCEDURE: The patient had undergone Gatorade, MiraLAX and Dulcolax prep. He had been brought into the operating room and laid in the left lateral decubitus position. After adequate intravenous sedation, the rectum was examined with 2% lidocaine jelly. No external hemorrhoids were encountered. The rectal tone was within normal limits. No lesions were palpated in the rectal vault. An Olympus colonoscope was advanced until the ileocecal valve and appendiceal orifice were clearly viewed. The prep was fair with visualization of the mucosal folds. The scope was removed with visualization of each mucosal fold. Scattered diverticulosis was encountered. Colon adenomas were resected with hot snare. No evidence of focal colitis was found. Retroflexion of the scope demonstrated no grade 1 internal hemorrhoids. The colon was desufflated. The patient had tolerated the procedure well. Withdrawal time was over 6 minutes. FINDINGS: No internal hemorrhoids. No external hemorrhoids. No arteriovenous malformations. Scattered diverticulosis. Removal of 2 polyps: - Snare polypectomy 15 cm from the anal verge, 8 mm tubulovillous adenoma polyp. - Snare polypectomy 50 cm from the anal verge, 12 mm flat villous adenoma polyp. No focal colitis. RECOMMENDATIONS: Given severity of tubular adenomas, recommend repeat colonoscopy 2 years, 2019. Plan - Discharge Summary New Discharge Prescriptions: No Action Levothyroxine Sodium [Synthroid] 175 mcg PO DAILY HYDROcodone/APAP 10-325MG [[place] 10-325] 1 - 2 each PO Q6H PRN #90 tab PRN Reason: Pain Ibuprofen [Motrin] 800 mg PO Q6H PRN PRN Reason: Pain Discharge Medication List Levothyroxine Sodium [Synthroid] 175 mcg PO DAILY 04/21/15 [History] HYDROcodone/APAP 10-325MG [[place] 10-325] 1 - 2 each PO Q6H PRN #90 tab 06/14/16 [Rx] Ibuprofen [Motrin] 800 mg PO Q6H PRN 07/13/17 [History] Patient Instructions/Handouts: *Surgery [facility] - (Anesthesia) Endoscopy Discharge Instructions, Colonoscopy (DC)
[2017-07-18] MEDS ORDERED: IV FLUID CONTINUATION 1,000 ML IV ONE (09:17)
[2017-07-18 09:37] VITALS: BP 141/73; PULSE 60
== END 2017-07-18 10:03 | disposition home or self-care (01) ==
LOC: ORWHC2ENDO 08:10
PROVIDERS: ATTEND Surgery Plastic and Reconstructive Surgery
DX: Z12.11 Encounter for screening for malignant neoplasm of colon (principal); D12.5 Benign neoplasm of sigmoid colon; K63.5 Polyp of colon; K57.90 Diverticulosis of intestine, part unspecified, without perforation or abscess without bleeding; E07.9 Disorder of thyroid, unspecified; M19.90 Unspecified osteoarthritis, unspecified site; Z79.899 Other long term (current) drug therapy
CPT/HCPCS: 88305; 45385; J2001; J2704

== ENCOUNTER 2018-07-05 07:58 | Day surgery (SDC) | payer BC ==
[2018-07-02 10:53] VITALS: BMI 31.3
[~2018-07-05 07:58] MED LIST changes: +DEXAMETHASONE SOD PHOSPHATE 10 MG/ML 1 ML VIAL IV ONE; +HEPARIN SODIUM,PORCINE 5,000 UNIT/ML 1 ML VIAL SQ ONE; +HYDROmorphone 0.5 MG/0.5 ML SYRINGE IVP PRN; -LIDOCAINE 1% 20 ML VIAL (10MG/ML) FOR IV START INTRADERMA PRN; +MIDAZOLAM 2 MG/2 ML VIAL IV PRN; +ONDANSETRON 4 MG/2 ML VIAL IVP ONE; +Pre Op ABX Message 1 EACH MISC MISCELLANE ONE; +SCOPOLAMINE 1.5MG/72HR PATCH TRANSDERM ONE
[2018-07-05 08:16] VITALS: RESP 16
[2018-07-05] MEDS ORDERED: LIDOCAINE 1% 20 ML VIAL (10MG/ML) FOR IV START INTRADERMA ONE (08:21)
--- NOTE | 2018-07-05 09:53 | P.GSHP ---
History of Present Illness H&P Date: 07/05/18 Chief Complaint: Posterior scalp lipoma This a 58-year-old male who presents today for excision of a posterior scalp lipoma. The lipoma measured prostate 5 cm in diameter. 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 hips replaced, RIGHT HAND- INDEX/MIDDLE FINGER sx for injury, LEFT KNEE ARTHROSCOPIC,RIGHT AND LEFT SHOULDER rotator cuff repairs Past Anesthesia/Blood Transfusion Reactions: No Reported Reaction, Motion Sickness Additional Past Anesthesia/Blood Transfusion Reaction / Comment(s): Pt has never had blood transfusion. Smoking Status: Never smoker - Past Family History Mother Family Medical History: Osteoarthritis (OA), Thyroid Disorder Additional Family Medical History / Comment(s): Mother is alive and 73 yrs old. She has back problems with surgery Father Family Medical History: CVA/TIA, Diabetes Mellitus, Osteoarthritis (OA) Additional Family Medical History / Comment(s): Father had gout, past alcoholism - he is 77 yrs old. Medications and Allergies Home Medications Medication Instructions Recorded Confirmed Type Levothyroxine Sodium [Synthroid] 200 mcg PO DAILY 04/21/15 07/05/18 History HYDROcodone/APAP 10-325MG [[place] 1 - 2 each PO Q6H PRN #90 tab 06/14/16 Rx 10-325] Ibuprofen [Motrin] 800 mg PO TID 07/13/17 07/05/18 History Allergies Allergy/AdvReac Type Severity Reaction Status Date / Time No Known Allergies Allergy Verified 07/05/18 08:21 Surgical - Exam Vital Signs Temp Pulse Resp BP Pulse Ox 97.4 F L 81 16 152/86 98 07/05/18 08:12 07/05/18 08:12 07/05/18 08:12 07/05/18 08:12 07/05/18 08:12 - General well developed, well nourished, no distress - Eyes PERRL - ENT normal pinna - Neck no masses - Respiratory normal expansion - Cardiovascular Rhythm: regular - Abdomen Abdomen: soft - Integumentary 5 cm posterior scalp lipoma Assessment and Plan Assessment: Posterior scalp lipoma. We'll perform excision.
[2018-07-05] MEDS ORDERED: PROPOFOL 10 MG/ML 20 ML VIAL IV ONE (10:02)
[2018-07-05] MEDS ORDERED: LIDOCAINE 1% INJ 10MG/ML (20 ML MDV) ONE (10:02)
[2018-07-05] MEDS ORDERED: MIDAZOLAM 2 MG/2 ML VIAL ONE (10:02)
[2018-07-05] MEDS ORDERED: fentaNYL (PF) 50 MCG/ML 2 ML AMP ONE (10:02)
[2018-07-05] MEDS ORDERED: PHENYLEPHRINE-0.9% NACL SYG 1 MG/10 ML SYRINGE ONE (10:02)
[2018-07-05] MEDS ORDERED: SODIUM CHLORIDE 0.9% 50 ML with ceFAZolin 2,000 MG IV ONE ×2 (10:25)
[2018-07-05] MEDS ORDERED: BUPIVACAIN-EPI 0.25%-1:200,000 30 ML VIAL SQ ONE ×2 (10:28)
--- NOTE | 2018-07-05 10:46 | P.OP ---
Date of Procedure: 07/05/18 Preoperative Diagnosis: posterior scalp lipoma Postoperative Diagnosis: Posterior scalp lipoma Procedure(s) Performed: Excision of posterior scalp lipoma Anesthesia: MAC Surgeon: Rober Helton Estimated Blood Loss (ml): 5 Pathology: other (Lipoma) Condition: stable Disposition: PACU Description of Procedure: The patient's placed on the operating table in the supine position. He received IV sedation. The scalp lipoma draped usual sterile fashion. Using 1% local Xylocaine the lipoma was anesthetized. Then using a 15 blade the skin was incised. Using blunt and sharp dissection with cautery lipoma was dissected free. The scalp was closed in 2 layers using 2-0 Vicryl and 3-0 Monocryl. Dermabond dressings was applied. Patient top she will was sent to recovery in stable condition. The lipoma measured 3 x 4 x 2 cm
[2018-07-05 10:56] VITALS: TEMP 97.6
[2018-07-05] MEDS ORDERED: IBUPROFEN 200 MG TAB PO ONE (11:40)
[2018-07-05 11:46] VITALS: BP 147/77; PULSE 92
== END 2018-07-05 11:55 | disposition home or self-care (01) ==
LOC: OR 07:58
PROVIDERS: ATTEND Surgery
DX: D17.0 Benign lipomatous neoplasm of skin and subcutaneous tissue of head, face and neck (principal); E07.9 Disorder of thyroid, unspecified; M19.90 Unspecified osteoarthritis, unspecified site; M51.36 Other intervertebral disc degeneration, lumbar region; Z82.3 Family history of stroke; Z83.3 Family history of diabetes mellitus; Z79.1 Long term (current) use of non-steroidal anti-inflammatories (NSAID); Z79.890 Hormone replacement therapy
CPT/HCPCS: 88304; 21012; J2250; J1644; J1100; J2405; J2001; J3010; J0690; J2370; J2704

== ENCOUNTER 2019-12-26 20:20 | Observation (INO) | payer BC ==
--- NOTE | 2019-12-26 20:46 | ED ---
General Adult HPI - General Chief complaint: Chest Pain Stated complaint: Chest Pain Time Seen by Provider: 12/26/19 20:27 Source: patient, RN notes reviewed, old records reviewed Mode of arrival: wheelchair Limitations: no limitations - History of Present Illness Initial comments: 59-year-old male presenting with exertional dyspnea and right-sided chest pain. Patient's symptoms 7 present for the past 3 days. He denies cough or fever. He has no known history of coronary artery disease, no history of DVT or PE. He does report some pain in the left calf which is been present for the past 3 days. No swelling. No injury. Patient denies fever. Pain does not radiate. It is substernal and right-sided chest pain. - Related Data Home Medications Medication Instructions Recorded Confirmed Levothyroxine Sodium [Synthroid] 200 mcg PO DAILY 04/21/15 12/26/19 HYDROcodone/APAP 7.5-325MG [[place] 1 tab PO TID PRN 12/26/19 12/26/19 7.5-325] Meloxicam 7.5 mg PO BID 12/26/19 12/26/19 traMADol HCL 50 mg PO TID PRN 12/26/19 12/26/19 Allergies Allergy/AdvReac Type Severity Reaction Status Date / Time No Known Allergies Allergy Verified 12/26/19 22:04 Review of Systems ROS Statement: Those systems with pertinent positive or pertinent negative responses have been documented in the HPI. ROS Other: All systems not noted in ROS Statement are negative. 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 hips replaced, RIGHT HAND- INDEX/MIDDLE FINGER sx for injury, LEFT KNEE ARTHROSCOPIC,RIGHT AND LEFT SHOULDER rotator cuff repairs Past Anesthesia/Blood Transfusion Reactions: No Reported Reaction, Motion Sickness Additional Past Anesthesia/Blood Transfusion Reaction / Comment(s): Pt has never had blood transfusion. Past Psychological History: No Psychological Hx Reported Smoking Status: Never smoker Past Alcohol Use History: None Reported Past Drug Use History: None Reported - Past Family History Mother Family Medical History: Osteoarthritis (OA), Thyroid Disorder Additional Family Medical History / Comment(s): Mother is alive and 73 yrs old. She has back problems with surgery Father Family Medical History: CVA/TIA, Diabetes Mellitus, Osteoarthritis (OA) Additional Family Medical History / Comment(s): Father had gout, past alcoholism- he is 77 yrs old. General Exam Limitations: no limitations General appearance: alert, in no apparent distress Head exam: Present: atraumatic, normocephalic Eye exam: Present: normal appearance, PERRL ENT exam: Present: normal exam Neck exam: Present: normal inspection. Absent: tenderness, meningismus Respiratory exam: Present: normal lung sounds bilaterally. Absent: respiratory distress, wheezes Cardiovascular Exam: Present: regular rate, normal rhythm GI/Abdominal exam: Present: soft. Absent: distended, tenderness, guarding Extremities exam: Present: normal inspection, normal capillary refill. Absent: pedal edema Neurological exam: Present: alert, oriented X3 Psychiatric exam: Present: normal affect, normal mood Skin exam: Present: warm, dry, intact. Absent: cyanosis, diaphoretic Course Vital Signs 12/26/19 20:22 Temperature 98.6 F Pulse Rate 69 Respiratory 20 Rate Blood Pressure 165/93 O2 Sat by Pulse 97 Oximetry EKG Findings - EKG Comments: EKG Findings:: EKG: Normal sinus rhythm, rate of 84, [place] interval 122, QRS duration 100, QTC 451, no ST segment elevation. Medical Decision Making - Medical Decision Making 59-year-old male presenting with right-sided chest pain, exertional dyspnea, and left calf pain. Workup was initiated, nonischemic EKG. He has a normal CBC, normal CMP, negative troponin. Chest x-ray negative for acute cardio pulmonary disease. CT angiography is performed with concern for pulmonary medicine, this is positive for bilateral pulmonary embolism with no right-sided heart strain. Patient is hemodynamically stable. He denies melena or rectal bleeding. He is initiated on high-dose heparin in the emergency department. He will be admitted to Dr. Alfaro who is aware of the patient. - Lab Data Result diagrams: 12/26/19 21:00 12/26/19 21:00 Lab Results 12/26/19 12/26/19 12/26/19 Range/Units 21:00 21:00 21:00 WBC 8.1 (3.8-10.6) k/uL RBC 5.18 (4.30-5.90) m/uL Hgb 15.8 (13.0-17.5) gm/dL Hct 47.9 (39.0-53.0) % MCV 92.5 (80.0-100.0) fL MCH 30.5 (25.0-35.0) pg MCHC 33.0 (31.0-37.0) g/dL RDW 12.8 (11.5-15.5) % Plt Count 286 (150-450) k/uL Neutrophils % 53 % Lymphocytes % 34 % Monocytes % 8 % Eosinophils % 3 % Basophils % 1 % Neutrophils # 4.3 (1.3-7.7) k/uL Lymphocytes # 2.7 (1.0-4.8) k/uL Monocytes # 0.6 (0-1.0) k/uL Eosinophils # 0.2 (0-0.7) k/uL Basophils # 0.1 (0-0.2) k/uL PT 9.6 (9.0-12.0) sec INR 0.9 (<1.2) APTT 23.6 (22.0-30.0) sec Sodium 141 (137-145) mmol/L Potassium 3.9 (3.5-5.1) mmol/L Chloride 109 H (98-107) mmol/L Carbon Dioxide 22 (22-30) mmol/L Anion Gap 10 mmol/L BUN 22 H (9-20) mg/dL Creatinine 0.93 (0.66-1.25) mg/dL Est GFR (CKD-EPI)AfAm >90 (>60 ml/min/1.73 sqM) Est GFR (CKD-EPI)NonAf 89 (>60 ml/min/1.73 sqM) Glucose 99 (74-99) mg/dL Calcium 9.6 (8.4-10.2) mg/dL Magnesium 1.9 (1.6-2.3) mg/dL Total Bilirubin 0.5 (0.2-1.3) mg/dL AST 34 (17-59) U/L ALT 32 (4-49) U/L Alkaline Phosphatase 127 H (38-126) U/L Troponin I (0.000-0.034) ng/mL NT-Pro-B Natriuret Pep pg/mL Total Protein 7.0 (6.3-8.2) g/dL Albumin 4.6 (3.5-5.0) g/dL 12/26/19 12/26/19 Range/Units 21:00 21:00 WBC (3.8-10.6) k/uL RBC (4.30-5.90) m/uL Hgb (13.0-17.5) gm/dL Hct (39.0-53.0) % MCV (80.0-100.0) fL MCH (25.0-35.0) pg MCHC (31.0-37.0) g/dL RDW (11.5-15.5) % Plt Count (150-450) k/uL Neutrophils % % Lymphocytes % % Monocytes % % Eosinophils % % Basophils % % Neutrophils # (1.3-7.7) k/uL Lymphocytes # (1.0-4.8) k/uL Monocytes # (0-1.0) k/uL Eosinophils # (0-0.7) k/uL Basophils # (0-0.2) k/uL PT (9.0-12.0) sec INR (<1.2) APTT (22.0-30.0) sec Sodium (137-145) mmol/L Potassium (3.5-5.1) mmol/L Chloride (98-107) mmol/L Carbon Dioxide (22-30) mmol/L Anion Gap mmol/L BUN (9-20) mg/dL Creatinine (0.66-1.25) mg/dL Est GFR (CKD-EPI)AfAm (>60 ml/min/1.73 sqM) Est GFR (CKD-EPI)NonAf (>60 ml/min/1.73 sqM) Glucose (74-99) mg/dL Calcium (8.4-10.2) mg/dL Magnesium (1.6-2.3) mg/dL Total Bilirubin (0.2-1.3) mg/dL AST (17-59) U/L ALT (4-49) U/L Alkaline Phosphatase (38-126) U/L Troponin I <0.012 (0.000-0.034) ng/mL NT-Pro-B Natriuret Pep 65 pg/mL Total Protein (6.3-8.2) g/dL Albumin (3.5-5.0) g/dL Critical Care Time Critical Care Time: Yes Total Critical Care Time: 35 Disposition Clinical Impression: Pulmonary embolism Disposition: ADMITTED IP TO THIS [facility] Condition: Stable Is patient prescribed a controlled substance at d/c from ED?: No Referrals: Luis Fitch DO [Primary Care Provider] - 1-2 days Decision to Admit Reason: Admit from EC Decision Date: 12/26/19 Decision Time: 22:13
[2019-12-26 21:22] LABS: Basophils # (A) 0.1 k/uL (0-0.2); Basophils % (A) 1 %; Eosinophils # (A) 0.2 k/uL (0-0.7); Eosinophils % (A) 3 %; HCT 47.9 % (39.0-53.0); HGB 15.8 gm/dL (13.0-17.5); Lymphocytes # (A) 2.7 k/uL (1.0-4.8); Lymphocytes % (A) 34 %; MCH 30.5 pg (25.0-35.0); MCV 92.5 fL (80.0-100.0); Mean Platelet Volume 6.7; Monocytes # (A) 0.6 k/uL (0-1.0); Monocytes % (A) 8 %; Neutrophils # (A) 4.3 k/uL (1.3-7.7); Neutrophils % (A) 53 %; Platelet Count 286 k/uL (150-450); RBC 5.18 m/uL (4.30-5.90); RDW 12.8 % (11.5-15.5); WBC 8.1 k/uL (3.8-10.6)
[2019-12-26 21:29] LABS: INR 0.9 (<1.2); Partial Thromboplastin Time 23.6 sec (22.0-30.0); Prothrombin Time 9.6 sec (9.0-12.0)
--- NOTE | 2019-12-26 21:49 | XR ---
EXAMINATION TYPE: XR chest 2V DATE OF EXAM: 12/26/2019 COMPARISON: 06/02/2016 INDICATION: Chest pain TECHNIQUE: Frontal and lateral views of the chest are obtained. FINDINGS: The heart size is normal. The pulmonary vasculature is normal. The lungs are clear. IMPRESSION: 1. No acute pulmonary process.
[2019-12-26 21:55] LABS: ALT 32 U/L (4-49); AST 34 U/L (17-59); African American GFR (CKD) >90 (>60 ml/min/1.73 sqM); Albumin 4.6 g/dL (3.5-5.0); Alkaline Phosphatase 127 U/L (38-126); Anion Gap 10 mmol/L; Blood Urea Nitrogen 22 mg/dL (9-20); Calcium 9.6 mg/dL (8.4-10.2); Carbon Dioxide 22 mmol/L (22-30); Chloride 109 mmol/L (98-107); Glucose 99 mg/dL (74-99); Magnesium 1.9 mg/dL (1.6-2.3); Non-African American GFR(CKD) 89 (>60 ml/min/1.73 sqM); Potassium 3.9 mmol/L (3.5-5.1); Sodium 141 mmol/L (137-145); Total Bilirubin 0.5 mg/dL (0.2-1.3)
[2019-12-26] MEDS ORDERED: HEPARIN SODIUM,PORCINE 10,000 UNIT/ML 1 ML VIAL IV ONE (21:56)
[2019-12-26] MEDS ORDERED: HEPARIN SODIUM,PORCINE 5,000 UNIT/ML 1 ML VIAL IV PRN (21:56)
--- NOTE | 2019-12-26 21:59 | CT ---
CT CHEST FOR PULMONARY EMBOLISM. EXAMINATION TYPE: CT angio chest DATE OF EXAM: 12/26/2019 INDICATION: Chest pain CT DLP: 587.8 mGycm, Automated exposure control for dose reduction was used. CONTRAST: Patient injected with 100 mL of Isovue 370. COMPARISON: None TECHNIQUE: CT of the chest is performed on a spiral scan at 2 mm thick sections. Study is performed with intravenous contrast timed for evaluation for pulmonary embolism. This will limit additional po rtions of the evaluation. 3-D MIP images reconstructed by the technologist are reviewed on the compu ter in the coronal and sagittal planes. FINDINGS: Right lower lobe pulmonary emboli are evident. Left lower lobe pulmonary emboli are identified. Sept um is midline. No reflux in the inferior vena cava is evident. No right heart strain is evident. No mediastinal or hilar adenopathy enlarged by CT criteria is evident. The ascending aorta diameter at the level of the main pulmonary artery is 4.0 cm. The main pulmonary artery diameter at the bifur cation is 2.5 cm. Lung windows are clear. Limited CT section through the upper abdomen are unremarkable. IMPRESSIONS: 1. Bilateral lower lobe pulmonary emboli. Report was called to emergency room by Dr. Carrington by telep walter 2155 hours 12/26/2019
[2019-12-26] MEDS ORDERED: ACETAMINOPHEN TAB 325 MG TAB PO PRN (22:10)
[2019-12-26] MEDS ORDERED: NALOXONE 0.4 MG/ML 1 ML VIAL IV PRN (22:10)
[2019-12-26] MEDS: HEPARIN SOD,PORK IN 0.45% NACL 25,000 UNIT in 0.45% NACL 1 250ML.BAG IV SCH (22:21)
[2019-12-27] MEDS ORDERED: HYDROcodone/APAP 7.5-325MG 1 EACH TAB PO PRN (01:18)
[2019-12-27] MEDS: traMADol 50 MG TAB PO PRN ×2 (01:28→20:07)
[2019-12-27] MEDS: MELOXICAM 7.5 MG TAB PO SCH ×2 (09:40→20:07)
[2019-12-27 09:47] LABS: Basophils % (A) 1 %; Eosinophils # (A) 0.3 k/uL (0-0.7); Eosinophils % (A) 4 %; HCT 43.8 % (39.0-53.0); HGB 14.7 gm/dL (13.0-17.5); Lymphocytes # (A) 2.6 k/uL (1.0-4.8); Lymphocytes % (A) 41 %; MCH 30.8 pg (25.0-35.0); MCHC 33.6 g/dL (31.0-37.0); MCV 91.9 fL (80.0-100.0); Mean Platelet Volume 6.8; Monocytes # (A) 0.4 k/uL (0-1.0); Monocytes % (A) 7 %; Neutrophils # (A) 2.9 k/uL (1.3-7.7); Neutrophils % (A) 46 %; Platelet Count 243 k/uL (150-450); RBC 4.76 m/uL (4.30-5.90); RDW 12.6 % (11.5-15.5); WBC 6.3 k/uL (3.8-10.6)
[2019-12-27] MEDS: LEVOTHYROXINE 100 MCG TAB PO SCH (11:26)
[2019-12-27] MEDS: FAMOTIDINE 20 MG TAB PO SCH ×2 (13:05→20:08)
[2019-12-27] MEDS: HEPARIN SOD,PORK IN 0.45% NACL 25,000 UNIT in 0.45% NACL 1 250ML.BAG IV SCH (13:05)
[2019-12-27] MEDS: IOPAMIDOL CONTRAST (ORAL USE) VIAL PO PRN ×2 (13:06→14:02)
[2019-12-27 13:42] LABS: African American GFR (CKD) >90 (>60 ml/min/1.73 sqM); Anion Gap 6 mmol/L; Blood Urea Nitrogen 18 mg/dL (9-20); Calcium 8.9 mg/dL (8.4-10.2); Carbon Dioxide 22 mmol/L (22-30); Chloride 111 mmol/L (98-107); Glucose 88 mg/dL (74-99); Non-African American GFR(CKD) >90 (>60 ml/min/1.73 sqM); Potassium 4.1 mmol/L (3.5-5.1); Sodium 139 mmol/L (137-145)
--- NOTE | 2019-12-27 15:05 | CT ---
EXAMINATION TYPE: CT abdomen pelvis w con DATE OF EXAM: 12/27/2019 COMPARISON: None. HISTORY: R/o malignancy Abdominal pain CT DLP: 1520.3 mGycm Automated exposure control for dose reduction was used. CONTRAST: Performed with IV Contrast, patient injected with 100 mL of Isovue 300. Multiple axial sections were obtained from the diaphragm to the floor the pelvis with oral and intrav enous contrast. The lung bases are clear of infiltrate. There is no pleural effusion. Heart size is normal. There is no pericardial effusion. Liver spleen pancreas gallbladder appear normal. Bile ducts are not dilated. Stomach is intact. There is no adrenal mass. Kidneys show satisfactory contrast opacification. There is no hydronephrosi s. There is 1.5 cm cortical cyst lower pole left kidney. There are bilateral renal parapelvic cysts. There are small bilateral renal calculi that measure up to 3 mm. Ureters are not dilated. There is no retroperitoneal adenopathy. Bladder distends smoothly. There is metal artifact from bilateral hip pr osthesis. There is no evidence of a pelvic mass. There is no inguinal hernia. There is no free fluid in the pelvis. Appendix is posterior and appears normal. There is no mesenteric edema. There is no ascites or free air. There is no bowel obstruction. Lumbar spine is intact. There is some narrowing of L5-S1 disc space. The bony pelvis is intact. IMPRESSION: Negative CT scan abdomen and pelvis. Normal appendix. Nonobstructing small bilateral renal calculi.
--- NOTE | 2019-12-27 16:37 | P.HPIM ---
History of Present Illness H&P Date: 12/27/19 Chief Complaint: Short of breath History of presenting complaint: This is a pleasant [address] Fitch. 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 Noticed some pain on the right chest. Slightly pruritic in nature. Also with exertion was having some perspiration. Also was noticing calf pain on the left side. Easily getting short winded on carrying material. Symptoms are getting was decided to come in. No history of prolonged inactivity. No prior history of DVT. Computed tomography scan of the abdomen showed bilateral PE. Patient started on IV heparin. Admitted for the same. Still feels a bit tired. good health otherwise. Review of systems: GEN.: Tired EYES: None HEENT: None NECK: None RESPIRATORY: As above CARDIOVASCULAR: None GASTROINTESTINAL: None GENITOURINARY: None MUSCULOSKELETAL: Chronic pain in the lower back and some of the joints LYMPHATICS: None HEMATOLOGICAL: None PSYCHIATRY: None NEUROLOGICAL: None Past medical history to include: Chronic low back pain, hypothyroid, patient does call to Dr. Aleman for lower back injections and therapy. Also [facility] Social history: Patient does construction work. Does not smoke or drink alcohol. . Physical examination: VITAL SIGNS: 98.6, 69, 20, 165/93, 97% on room air GENERAL: 29.8, laying in bed, but tired. EYES: Pupils equal. Conjunctiva normal. HEENT: External appearance of nose and ears normal, oral cavity grossly normal. NECK: JVD not raised; masses not palpable. HEART: First and second heart sounds are normal; no edema. LUNGS: Respiratory rate normal; clear to auscultation. ABDOMEN: Soft, nontender, liver spleen not palpable, no masses palpable. PSYCH: Alert and oriented x3; mood and affect normal. NEUROLOGICAL: Cranial nerves grossly intact; no facial asymmetry, power and sensation grossly intact. LYMPHATICS: No lymph nodes palpable in the axilla and neck INVESTIGATIONS, reviewed in the clinical context: White count 8.1 hemoglobin 15.8 potassium 3.9 creatinine 0.93 Troponin I negative proBNP 65 EKG tracing personally reviewed by me-normal sinus rhythm Chest x-ray film personally reviewed by me-borderline cardiomegaly, lung levine clear CT angiogram chest-bilateral otic lobe pulmonary embolism Assessment: -Bilateral pulmonary embolism, unprovoked and the patient is otherwise pretty active. -Chronic lumbar osteoarthritis frequents regularly started on injection -Hypothyroid -IV heparin monitoring Plan: Patient be continued IV heparin for now. Symptoms aren't better with associated oral anticoagulation. Home medications to be resumed. He also had Pepcid. In BAY stockings. Activity as tolerated. Care was discussed with the patient. Questions were answered. 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 hips replaced, RIGHT HAND- INDEX/MIDDLE FINGER sx for injury, LEFT KNEE ARTHROSCOPIC,RIGHT AND LEFT SHOULDER rotator cuff repairs Past Anesthesia/Blood Transfusion Reactions: No Reported Reaction, Motion Sickness Additional Past Anesthesia/Blood Transfusion Reaction / Comment(s): Pt has never had blood transfusion. Past Psychological History: No Psychological Hx Reported Additional Psychological History / Comment(s): Pt resides with his spouse. He is normally independent. He drives. He uses no assistive devices. Smoking Status: Never smoker Past Alcohol Use History: None Reported Past Drug Use History: None Reported - Past Family History Mother Family Medical History: Osteoarthritis (OA), Thyroid Disorder Additional Family Medical History / Comment(s): Mother is alive and 73 yrs old. She has back problems with surgery Father Family Medical History: CVA/TIA, Diabetes Mellitus, Osteoarthritis (OA) Additional Family Medical History / Comment(s): Father had gout, past alcoholism- he is 77 yrs old. Medications and Allergies Home Medications Medication Instructions Recorded Confirmed Type Levothyroxine Sodium [Synthroid] 200 mcg PO DAILY 04/21/15 12/26/19 History HYDROcodone/APAP 7.5-325MG [[place] 1 tab PO TID PRN 12/26/19 12/26/19 History 7.5-325] Meloxicam 7.5 mg PO BID 12/26/19 12/26/19 History traMADol HCL 50 mg PO TID PRN 12/26/19 12/26/19 History Allergies Allergy/AdvReac Type Severity Reaction Status Date / Time No Known Allergies Allergy Verified 12/26/19 22:04 Physical Exam Vitals: Vital Signs Temp Pulse Pulse Resp BP BP Pulse Ox 12/27/19 09:25 97.9 F 60 16 134/79 97 12/27/19 04:00 98.6 F 75 16 137/84 95 12/27/19 01:42 18 12/27/19 00:56 67 16 170/97 97 12/26/19 23:10 98.4 F 68 18 172/90 98 12/26/19 20:22 98.6 F 69 20 165/93 97 Intake and Output 12/26/19 12/27/19 12/27/19 22:59 06:59 14:59 Intake Total 104.431 Balance 104.431 Intake: Intake, IV Titration 104.431 Amount Heparin Sod,Pork in 0.45% 104.431 NaCl 25,000 unit In 0.45 % NaCl 1 250ml.bag @ 18 UNITS/KG/HR 17.309 mls/hr IV .[id number] [facility] Rx#: [id number] Other: Weight 96.162 kg 91.4 kg Results CBC & Chem 7: 12/27/19 09:30 12/27/19 09:30 Labs: Abnormal Lab Results - Last 24 Hours (Table) 12/26/19 12/27/19 12/27/19 Range/Units 21:00 03:45 09:30 APTT 84.0 H 72.0 H (22.0-30.0) sec Chloride 109 H (98-107) mmol/L BUN 22 H (9-20) mg/dL Alkaline Phosphatase 127 H (38-126) U/L Thrombosis Risk Factor Assmnt - Choose All That Apply Each Factor Represents 1 point: Age 41-60 years Each Risk Factor Represents 3 Points: History of DVT/PE Other congenital or acquired thrombophilia - If yes, enter type in comment: No Thrombosis Risk Factor Assessment Total Risk Factor Score: 4 Thrombosis Risk Factor Assessment Level: Moderate Risk
[2019-12-27] MEDS: ENOXAPARIN 100 MG/ML SYRINGE SQ SCH (17:32)
[2019-12-28] MEDS: LEVOTHYROXINE 100 MCG TAB PO SCH (05:30)
[2019-12-28] MEDS: ENOXAPARIN 100 MG/ML SYRINGE SQ SCH ×2 (05:30→17:02)
[2019-12-28] MEDS: FAMOTIDINE 20 MG TAB PO SCH (08:47)
[2019-12-28] MEDS: MELOXICAM 7.5 MG TAB PO SCH (08:47)
[2019-12-28 08:50] VITALS: RESP 16; TEMP 97.9
[2019-12-28 12:06] VITALS: BP 165/80; PULSE 55
--- NOTE | 2019-12-28 13:00 | ECHOF ---
Referral Reason:acute PE MEASUREMENTS -------- HEIGHT: 172.7 cm WEIGHT: 93.9 kg BP: RVIDd: 3.7 cm (< 3.3) IVSd: 1.2 cm (0.6 - 1.1) LVIDd: 3.9 cm (3.9 - 5.3) LVPWd: 1.1 cm (0.6 - 1.1) IVSs: 1.5 cm LVIDs: 2.8 cm LVPWs: 1.7 cm LA Diam: 4.6 cm (2.7 - 3.8) LAESV Index (A-L): 35.51 ml/m Ao Diam: 2.8 cm (2.0 - 3.7) AV Cusp: 1.9 cm (1.5 - 2.6) LA Diam: 4.4 cm (2.7 - 3.8) MV EXCURSION: 19.783 mm (> 18.000) MV EF SLOPE: 138 mm/s (70 - 150) EPSS: 0.6 cm MV E Mike: 0.58 m/s MV DecT: 140 ms MV A Mike: 0.83 m/s MV E/A Ratio: 0.70 RAP: 5.00 mmHg RVSP: 19.15 mmHg FINDINGS -------- Sinus rhythm. This was a technically good study. The left ventricular size is normal. There is mild concentric left ventricular hypertrophy. Overa ll left ventricular systolic function is normal with, an EF between 55 - 60 %. The right ventricle is normal in size. The left atrium is moderately dilated. LA is moderately dilated 34-39 ml/m2 The right atrial size is normal. The aortic valve is trileaflet, and appears structurally normal. No aortic stenosis or regurgitation. Mild mitral regurgitation is present. Mild tricuspid regurgitation present. Right ventricular systolic pressure is normal at < 35 mmHg. There is no pulmonic regurgitation present. The aortic root size is normal. There is no pericardial effusion. CONCLUSIONS -------- 1. The left ventricular size is normal. 2. There is mild concentric left ventricular hypertrophy. 3. Overall left ventricular systolic function is normal with, an EF between 55 - 60 %. 4. The right ventricle is normal in size. 5. The left atrium is moderately dilated. 6. LA is moderately dilated 34-39 ml/m2 7. The right atrial size is normal. 8. Mild mitral regurgitation is present. 9. Mild tricuspid regurgitation present. 10. Right ventricular systolic pressure is normal at < 35 mmHg. FRAME STRIPPER: Kristina Gillis RDCS
--- NOTE | 2019-12-28 22:50 | P.DS ---
Providers Date of admission: 12/28/19 10:57 Expected date of discharge: 12/28/19 Attending physician: Andrew Alfaro Primary care physician: Luis Fitch [facility] Course: Chief Complaint: Short of breath History of presenting complaint: This is a pleasant [address] Fitch. 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 Noticed some pain on the right chest. Slightly pruritic in nature. Also with exertion was having some perspiration. Also was noticing calf pain on the left side. Easily getting short winded on carrying material. Symptoms are getting was decided to come in. No history of prolonged inactivity. No prior history of DVT. Computed tomography scan of the abdomen showed bilateral PE. Patient started on IV heparin. Admitted for the same. Still feels a bit tired. good health otherwise. Today-doing well. Greatly improved. Up and about. Very keen to go home. Patient to start xarelto tomorrow morning. Discussed with the patient he'll need at least 6 months of xarelto. At this was an unprovoked event. Computed tomography scan of the abdomen pelvis negative for malignancy. Discharge planning discussed at length with the patient. Questions answered. Discussion and discharge planning more than 35 minutes. Physical examination: VITAL SIGNS: 97.9, CT 7, 16, 155/86, 96% on room air GENERAL: Sitting up in a chair, comfortable EYES: Pupils equal. Conjunctiva normal. HEENT: External appearance of nose and ears normal, oral cavity grossly normal. NECK: JVD not raised; masses not palpable. HEART: First and second heart sounds are normal; no edema. LUNGS: Respiratory rate normal; clear to auscultation. ABDOMEN: Soft, nontender, liver spleen not palpable, no masses palpable. PSYCH: Alert and oriented x3; mood and affect normal. INVESTIGATIONS, reviewed in the clinical context: White count 8.1 hemoglobin 15.8 potassium 3.9 creatinine 0.93 Troponin I negative proBNP 65 EKG tracing personally reviewed by me-normal sinus rhythm Chest x-ray film personally reviewed by me-borderline cardiomegaly, lung levine clear CT angiogram chest-bilateral otic lobe pulmonary embolism Assessment: -Bilateral pulmonary embolism, unprovoked and the patient is otherwise pretty active. -Chronic lumbar osteoarthritis frequents regularly started on injection -Hypothyroid -IV heparin monitoring Disposition: Home Patient Condition at Discharge: Stable Plan - Discharge Summary Discharge Rx Participant: No New Discharge Prescriptions: New Omeprazole Magnesium [PriLOSEC OTC] 20 mg PO BID #60 tablet. Rivaroxaban [Xarelto Starter Pack] 0 mg PO DIRECTED 30 Days #1 pack Continue Levothyroxine Sodium [Synthroid] 200 mcg PO DAILY Meloxicam 7.5 mg PO BID HYDROcodone/APAP 7.5-325MG [[place] 7.5-325] 1 tab PO TID PRN PRN Reason: Pain traMADol HCL 50 mg PO TID PRN PRN Reason: Pain Discharge Medication List Levothyroxine Sodium [Synthroid] 200 mcg PO DAILY 04/21/15 [History] HYDROcodone/APAP 7.5-325MG [[place] 7.5-325] 1 tab PO TID PRN 12/26/19 [History] Meloxicam 7.5 mg PO BID 12/26/19 [History] traMADol HCL 50 mg PO TID PRN 12/26/19 [History] Omeprazole Magnesium [PriLOSEC OTC] 20 mg PO BID #60 tablet. 12/28/19 [Rx] Rivaroxaban [Xarelto Starter Pack] 0 mg PO DIRECTED 30 Days #1 pack 12/28/19 [Rx] Follow up Appointment(s)/Referral(s): Luis Fitch DO [Primary Care Provider] - 1-2 days Patient Instructions/Handouts: Pulmonary Embolism (DC) Activity/Diet/Wound Care/Special Instructions: dc after pm dose of lovenox Discharge Disposition: HOME SELF-CARE
== END 2019-12-28 17:05 | disposition home or self-care (01) ==
LOC: EC 20:20 → 3SCARD 22:10 → INTOOBSV 12-28 10:57 → OBSVTOIN 12-28 10:57 → UNDODISIN 12-28 17:05
PROVIDERS: ADMIT Hospitalist; ATTEND Hospitalist
DX: I26.99 Other pulmonary embolism without acute cor pulmonale (principal); M79.662 Pain in left lower leg; M47.896 Other spondylosis, lumbar region; E03.9 Hypothyroidism, unspecified; M51.36 Other intervertebral disc degeneration, lumbar region; G89.29 Other chronic pain; I08.1 Rheumatic disorders of both mitral and tricuspid valves; Z20.828 Contact with and (suspected) exposure to other viral communicable diseases; Z79.890 Hormone replacement therapy; Z79.891 Long term (current) use of opiate analgesic; Z79.1 Long term (current) use of non-steroidal anti-inflammatories (NSAID); Z96.643 Presence of artificial hip joint, bilateral; Z98.890 Other specified postprocedural states; Z87.828 Personal history of other (healed) physical injury and trauma; Z87.39 Personal history of other diseases of the musculoskeletal system and connective tissue; Z87.898 Personal history of other specified conditions; Z82.61 Family history of arthritis; Z83.49 Family history of other endocrine, nutritional and metabolic diseases; Z82.3 Family history of stroke; Z83.3 Family history of diabetes mellitus; Z82.69 Family history of other diseases of the musculoskeletal system and connective tissue; Z81.1 Family history of alcohol abuse and dependence
CPT/HCPCS: 96366 ×3; 96372 ×2; 93005 ×2; 96376; 96365; 99291; 36415; 93306; 83880; 80053; 80048; 83735; 84484; 85025 ×2; 85610; 85730 ×2; 71046; 71275; 74177; G0378 ×3; U0003; J1644 ×3; J1650 ×2; Q9967 ×2; 96374

== ENCOUNTER → 2020-01-19 | Outpatient (CLI) | payer BC ==
--- NOTE | 2020-01-19 18:00 | US ---
EXAMINATION TYPE: US venous doppler duplex LE BI DATE OF EXAM: 01/19/2020 2:32 PM COMPARISON: NONE CLINICAL HISTORY: 59-year-old male M79.662 pain in LT lower leg. DIAGNOSED PE 1 MONTH AGO, PAIN BILAT ERAL LOWER LEGS SIDE PERFORMED: BILATERAL TECHNIQUE: The lower extremity deep venous system is examined utilizing real time linear array sonog domingo with graded compression, doppler sonography and color-flow sonography. FINDINGS: VESSELS IMAGED: External Iliac Vein (EIV) Common Femoral Vein Deep Femoral Vein Greater Saphenous Vein * Femoral Vein Popliteal Vein Small Saphenous Vein * Proximal Calf Veins (* superficial vessels) Right Leg: no evidence of DVT Left Leg: no evidence of DVT IMPRESSION: No evidence for DVT within the bilateral lower extremities imaged from the groin to the upper calves.
== END | disposition home or self-care (01) ==
LOC: RADUSWWP 14:06
PROVIDERS: ATTEND Family Medicine
DX: M79.662 Pain in left lower leg (principal)
CPT/HCPCS: 93970

== ENCOUNTER → 2020-07-20 | Outpatient (CLI) | payer BC ==
--- NOTE | 2020-07-20 14:53 | US ---
EXAMINATION TYPE: US venous doppler duplex LE BI DATE OF EXAM: 07/20/2020 1:49 PM COMPARISON: Prior bilateral venous ultrasound January 19, 2020 CLINICAL HISTORY: I26.99 Pulmonary embolism,M79.661 Pain in rt lower limb. Bilateral swelling. SIDE PERFORMED: Bilateral TECHNIQUE: The lower extremity deep venous system is examined utilizing real time linear array sonog domingo with graded compression, doppler sonography and color-flow sonography. VESSELS IMAGED: Common Femoral Vein Deep Femoral Vein Greater Saphenous Vein * Femoral Vein Popliteal Vein Small Saphenous Vein * Proximal Calf Veins (* superficial vessels) Right Leg: Negative for DVT Left Leg: Negative for DVT Grayscale, color doppler, spectral doppler imaging performed of the deep veins of the bilateral lower extremities. There is normal flow, compressibility, vascular waveforms. IMPRESSION: No ultrasound evidence for acute DVT in either lower extremity. No significant change fr om prior.
== END | disposition home or self-care (01) ==
LOC: RADUSWWP 13:27
PROVIDERS: ATTEND Internal Medicine Hematology & Oncology
DX: M79.662 Pain in left lower leg (principal); M79.661 Pain in right lower leg; I26.99 Other pulmonary embolism without acute cor pulmonale
CPT/HCPCS: 93970

== ENCOUNTER → 2021-03-02 | Outpatient (CLI) | payer BC ==
--- NOTE | 2021-03-02 16:05 | US ---
EXAMINATION TYPE: US carotid duplex BILAT DATE OF EXAM: 03/02/2021 COMPARISON: NONE CLINICAL HISTORY: H53.459 LOCALIZED VISUAL FIELD DEFECT UNSPECIFIED EYE. dizziness EXAM MEASUREMENTS: RIGHT: Peak Systolic Velocity (PSV) cm/sec ----- Right CCA: 75.4 ----- Right ICA: 120 ----- Right ECA: 120 ICA/CCA ratio: 1.6 RIGHT: End Diastole cm/sec ----- Right CCA: 15.6 ----- Right ICA: 42.1 ----- Right ECA: 12.9 LEFT: Peak Systolic Velocity (PSV) cm/sec ----- Left CCA: 111 ----- Left ICA: 137 ----- Left ECA: 111 ICA/CCA ratio: 1.2 LEFT: End Diastole cm/sec ----- Left CCA: 26.5 ----- Left ICA: 35.2 ----- Left ECA: 26.4 VERTEBRALS (direction of flow): Right Vertebral: Antegrade Left Vertebral: Antegrade Rhythm: Normal mild to moderate plaque bilateral bifurcations. slightly increased velocities left bulb and left ICA Randolph scale images show mild peripheral shadowing plaque at carotid bulb level. IMPRESSION: Mild atherosclerotic changes bilaterally. No hemodynamically significant stenosis in e ither internal carotid artery. Criteria for Assigning % of Stenosis / Diameter reduction (Estimation based on the indirect measurements of the internal carotid artery velocities (ICA PSV). 1. Normal (no stenosis)=ICA PSV < 125 cm/s: ratio < 2.0: ICA EDV<40 cm/s. 2. Less than 50% stenosis=ICA PSV < 125 cm/s: ratio < 2.0: ICA EDV<40 cm/s. 3. 50 to 69% stenosis=ICA PSV of 125 to 230 cm/s: ration 2.0 ? 4.0: ICA EDV 40-100 cm/s. 4. Greater than 70% stenosis to near occlusion= ICA PSV > 230 cm/s: ratio > 4.0: ICA EDV > 100 cm/s. 5. Near occlusion= ICA PSV velocities may be low or undetectable: variable ratio and ICA EDV. 6. Total occlusion=unable to detect flow.
== END | disposition home or self-care (01) ==
LOC: RADUSWWP 14:45
PROVIDERS: ATTEND Family Medicine
DX: H53.459 Other localized visual field defect, unspecified eye (principal)
CPT/HCPCS: 93880

== ENCOUNTER → 2021-03-31 | Outpatient (CLI) | payer BC ==
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
== END | disposition home or self-care (01) ==
LOC: NEUROMAIN 07:58
PROVIDERS: ATTEND Family Medicine
DX: R55 Syncope and collapse (principal)
CPT/HCPCS: 95816

== ENCOUNTER → 2021-04-11 | Outpatient (CLI) | payer BC ==
[2021-04-11 09:02] VITALS: BP 142/90; PULSE 82; RESP 18; TEMP 98.1
--- NOTE | 2021-04-11 09:27 | P.PAINCN ---
History of Present Illness - Reason for Consult Consult date: 04/11/21 - History of Present Illness This is 60 years old male with a chronic history of severe low back pain started more than 15 years ago, patient diagnosed with lumbar spondylosis with lumbar facet arthropathy and lumbar stenosis, lumbar radiculopathy, patient being treated over the last 10 years at the [facility] and he had radiofrequency thermocoagulation of the medial branch lumbar area and he had good pain relief for more than 6 months, after the RFA, also patient had a transforaminal epidural steroid injection to manage his radicular symptoms, patient was referred to [facility] for radiofrequency ablation of the medial branch lumbar area, she denies any motor or sensory deficit he denies any fever or night sweats he denies any change in the bowel movement or urination, 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 Past Medical History Past Medical History: Blood Disorder, Deep Vein Thrombosis (DVT), Hypertension, Osteoarthritis (OA), Pulmonary Embolus (PE), Thyroid Disorder Additional Past Medical History / Comment(s): DDD WITH LOWER BACK PAIN., BILATERAL PE (DECEMBER 2019), CLOTTING DISORDER (UNKNOWN NAME)., BLACKED OUT WHILE DRIVING LAST MONTH., History of Any Multi-Drug Resistant Organisms: None Reported Past Surgical History: Joint Replacement, Orthopedic Surgery Additional Past Surgical History / Comment(s): butch. hips replaced, RIGHT HAND- INDEX/MIDDLE FINGER sx for injury, LEFT KNEE ARTHROSCOPIC,RIGHT AND LEFT SHOULDER rotator cuff repairs Past Anesthesia/Blood Transfusion Reactions: No Reported Reaction, Motion Sickness Additional Past Anesthesia/Blood Transfusion Reaction / Comm: Pt has never had blood transfusion. Smoking Status: Never smoker - Past Family History Mother Family Medical History: Osteoarthritis (OA), Thyroid Disorder Additional Family Medical History / Comment(s): . Father Family Medical History: Blood Disorder, Diabetes Mellitus, Osteoarthritis (OA) Additional Family Medical History / Comment(s): GOUT, CLOTTING DISORDER Medications and Allergies Home Medications Medication Instructions Recorded Confirmed Type Levothyroxine Sodium [Synthroid] 200 mcg PO DAILY 04/21/15 04/11/21 History traMADol HCL 50 mg PO TID PRN 12/26/19 04/11/21 History Cannabidiol (Cbd) [Epidiolex] 1 dose PO DIRECTED PRN 04/07/21 04/11/21 History Rivaroxaban [Xarelto] 20 mg PO HS 04/07/21 04/11/21 History lisinopriL 10 mg PO HS 04/07/21 04/11/21 History Allergies Allergy/AdvReac Type Severity Reaction Status Date / Time No Known Allergies Allergy Verified 04/11/21 08:39 Physical Exam Vitals: Vital Signs Temp Pulse Resp BP 04/11/21 08:55 98.1 F 82 18 142/90 Physical Examinations : -Constitutiona : Cooperative , not in acute distress . -HEENT : nech : supple , no Lymphadenopathy , normal thyroid size . : eyes : no ptosis , no icterus, no photophobia . - neurologic : Cranial nerve II to XII intact , no focal neurological deffecit . -psychatric : alert , oriented X 3 , appropriate affect , intact judgment and insight . -Lymphatic : no Lymphadenopathy . - musculoskeltal : Lumber spine moter stegnth lower extremities ,thigh and legs 5/5 Right side , 5/5 Left side deep tendon reflexes : normal Knee Jerk , normal ankle Jerk lumber facet Loading Test =positive Right , positive Left Range of motion of the lumbar spine Flexion 30 degrees, extension 10 degrees strait leg raising test = positive at 30 degree Fabere test= positive Right , and positive LT . Sever tenderness over the Sacroiliac joint on the Right , and Left sides Gaenslen test= positive right ,and positive left . Seated flexion test= positive right ,and positive Left . Distraction test= positive bilaterally Results Comments: MRI of the lumbar spine multilevel lumbar bulging disc disease and there is disc herniation at L5-S1 and there is foraminal stenosis and lumbar spondylosis Assessment and Plan Plan: Assessment and plan=1-lumbar spondylosis with lumbar facet arthropathy. 2-lumbar radiculopathy. 3-lumbar degenerative disc disease. he had good results after RFA of the medial branch lumbar area done at L4 5 and L5-S1 , with good candidate to have a repeat RFA medial branch lumbar area at L4 5 and L5-S1. And had to hold Xarelto for 3 days before the procedure Time with Patient: Greater than 30 PQRS Measure Charge Sheet Measure #130: Documentation of Current Meds in Medical Chart: Patient's medications documented in chart Measure #226: Tobacco Use: Screen & Cessation Intervention: Pt not a tobacco user Measure #111: Pneumonia Vaccination: Pneumococcal vaccine NOT administered or previously given Measure #47: Advance Care Plan: Advance care planning discussed & documented, pt chose/unable to give Measure #412: Opioid Treatment Agreement: No documentation of signed opioid treatment agreement Measure #408: Opioid Therapy Follow-up Evaluation: Patient had NO f/u eval minimum every 3 months during opioid therapy Measure #317: Preventitive Care & Scrn High Bld Press & F/U: Pre-hypertensive or hypertensive BP documented, pt will f/u with PCP Measure #128: Body Mass Index (BMI) Screening & Follow-up: BMI documented ABOVE normal parameters - f/u documented Measure #131: Pain Assessment & Follow-up: Pain positive & plan documented, Follow-up scheduled Measure #431: Unhealthy Alcohol Use Preventative Care & Scrn: Patient not identified as an unhealthy alcohol user Mode of Arrival: Ambulatory - Pain Location Lower Back Non-Pharmacological Interventions: Inactivity, Relaxation Technique Pharmacological Interventions: Medication, PRN Medication PQRS Narrative: Smoking Status Never smoker Blood Pressure 142/90 Pain Intensity [Lower Back] 8 Scale Used Numeric (1 - 10) Hx Alcohol Use (MH) No Home Medications: Ambulatory Orders Levothyroxine Sodium [Synthroid] 200 mcg PO DAILY 04/21/15 traMADol HCL 50 mg PO TID PRN 12/26/19 Cannabidiol (Cbd) [Epidiolex] 1 dose PO DIRECTED PRN 04/07/21 Rivaroxaban [Xarelto] 20 mg PO HS 04/07/21 lisinopriL 10 mg PO HS 04/07/21
== END | disposition home or self-care (01) ==
LOC: PNWHC3 08:35
PROVIDERS: ATTEND Specialist
DX: M47.896 Other spondylosis, lumbar region (principal); M51.16 Intervertebral disc disorders with radiculopathy, lumbar region
CPT/HCPCS: 99211

== ENCOUNTER 2021-06-03 07:51 | Day surgery (SDC) | payer BC ==
[2021-05-30 11:45] VITALS: BMI 31.3
[~2021-06-03 07:51] MED LIST changes: -DEXAMETHASONE SOD PHOSPHATE 10 MG/ML 1 ML VIAL IV ONE; -HEPARIN SODIUM,PORCINE 5,000 UNIT/ML 1 ML VIAL SQ ONE; -HYDROmorphone 0.5 MG/0.5 ML SYRINGE IVP PRN; -MIDAZOLAM 2 MG/2 ML VIAL IV PRN; -ONDANSETRON 4 MG/2 ML VIAL IVP ONE; -Pre Op ABX Message 1 EACH MISC MISCELLANE ONE; -SCOPOLAMINE 1.5MG/72HR PATCH TRANSDERM ONE
[2021-06-03 08:13] VITALS: TEMP 97.5
[2021-06-03] MEDS ORDERED: fentaNYL (PF) 50 MCG/ML 2 ML AMP ONE (08:14)
[2021-06-03] MEDS ORDERED: MIDAZOLAM 2 MG/2 ML VIAL ONE (08:14)
[2021-06-03] MEDS ORDERED: LIDOCAINE 1% INJ 10MG/ML (20 ML MDV) ONE (08:14)
[2021-06-03] MEDS ORDERED: ROPIVACAINE 5MG/ML 20ML VIAL ONE (08:14)
[2021-06-03] MEDS ORDERED: TRIAMCINOLONE ACETONIDE 40 MG/ML 1 ML VIAL ONE (08:14)
--- NOTE | 2021-06-03 08:53 | P.PCN ---
Date of Procedure: 06/03/21 Surgeon: Amador Tapia Pathology: none sent Condition: stable Disposition: PACU Description of Procedure: PREOPERATIVE DIAGNOSIS: Lumbar spondylosis without myelopathy POSTOPERATIVE DIAGNOSIS: Lumbar spondylosis without myelopathy PROCEDURES : Radiofrequency thermocoagulation L4-L5, and L5-S1 medial branch bilaterally with fluoroscopic guidance ANESTHESIA: IV moderate conscious sedation by the anesthesia Department Physician:Amador Tapia MD EBL: Minimal PROCEDURE INDICATION: The patient with low back pain secondary to lumbar facet arthropathy who had more than 50% relief of her pain with previous diagnostic lumbar medial branch block with bupivacaine. PROCEDURE DESCRIPTION / TECHNIQUE: The patient was seen and identified in the preoperative area. Risks, benefits, complications, including but not limited to risk of infection ,bleeding , allergic reactions to the medications and no complete pain relief , and alternatives were discussed with the patient, the patient agreed to proceed with the procedure and signed the consent. IV was started. Vital signs remained stable throughout the procedure. Patient was taken to the OR and time out was completed. The patient was placed in the prone position on the procedure table. The lumber area was prepped and draped in the usual sterile fashion. . Vital signs were closely monitored during the procedure .IV sedation was used during the procedure to decrease patients anxiety. The target points were identified as follows: For the L5-S1 level which corresponds to the dorsal ramus of L5 the target point was at the superior medial aspect of the sacral ala on the Rt side of the spine on the AP view of fluoroscopy and for the L3, and L4 medial branches the target points were at the connection between the transverse process and the superior articular process of L4, and L5 vertebra respectively on the Rt oblique view of fluoroscopy. skin was marked, and localized with 1% lidocaineat these points. Subsequently, an 18 [id number] radiofrequency needles with a 10-mm curved active tips were advanced guided by fluoroscopy to each of the target points mentioned above in a superior medial direction to get the active tips as parallel as possible to the medial branches tracks. AP, oblique, and lateral views of fluoroscopy were used to verify needle tips position. Each level then underwent motor testing at 2.5 Hz and 0 to 3 volt with local stimulation, but no radicular symptoms down the legs. I then injected 1 mL of lidocaine 1% in each needle before starting radiofrequency thermocoagulation at 80 degrees celsius for 90 seconds. After that I injected 1 ml of PF Ropivacaine 0.5%(3 mls) with 40 mg of Kenalog, 1 mL of this mixture was given in each needle before taking the needles out intact. Then the left side with the same levels was done in the same manner. At the end of the procedure, the skin was cleansed and bandages were applied. A copy of needle placement fluoroscopy was saved on the C-arm machine. COMPLICATIONS: No acute complications. DISPOSITION / PLANS: The patient was placed in a supine position and transferred to the recovery area in a stable condition for observation and was discharged from the recovery room after meeting discharge criteria. Home discharge instructions given to the patient by the staff. The patient was reexamined prior to discharge. The patient will schedule a follow up in the clinic in 2-4 weeks.
[2021-06-03] MEDS ORDERED: IV FLUID CONTINUATION 1,000 ML IV ONE (08:57)
[2021-06-03 09:31] VITALS: BP 115/78; PULSE 78; RESP 18
--- NOTE | 2021-06-03 12:18 | FL ---
Fluoroscopy INDICATION: Pain FINDINGS: Fluoroscopy time: 28 seconds. Images obtained: 6. IMPRESSIONS: 1. Documentation of fluoroscopy.
== END 2021-06-03 09:33 | disposition home or self-care (01) ==
LOC: ORPAIN 07:51
PROVIDERS: ATTEND Anesthesiology
DX: M54.16 Radiculopathy, lumbar region (principal); M47.816 Spondylosis without myelopathy or radiculopathy, lumbar region; I10 Essential (primary) hypertension; Z86.718 Personal history of other venous thrombosis and embolism; Z86.711 Personal history of pulmonary embolism; E07.9 Disorder of thyroid, unspecified; G89.29 Other chronic pain; M54.50 Low back pain, unspecified; Z79.01 Long term (current) use of anticoagulants; Z79.899 Other long term (current) drug therapy
CPT/HCPCS: 64635; 64636; J2250; J3301; J2001 ×2; J3010; J2795

== ENCOUNTER → 2021-11-14 | Outpatient (CLI) | payer BC ==
[2021-11-14 08:39] VITALS: BP 125/70; PULSE 72; RESP 18; TEMP 97.5
--- NOTE | 2021-11-14 08:45 | P.PAINPG ---
Objective - Vital Signs Vital signs: Vital Signs Temp 97.5 F L 11/14/21 08:26 Pulse 72 11/14/21 08:26 Resp 18 11/14/21 08:26 BP 125/70 11/14/21 08:26 Pulse Ox 98 11/14/21 08:26 FiO2 Intake & Output 11/13/21 11/14/21 11/14/21 18:59 06:59 18:59 Weight 94.801 kg PQRS Measure Charge Sheet Mode of Arrival: Ambulatory Comment: A 61 yr old male with a history of severe and chronic low back pain secondary to lumbar degenerative disc diseases and lumbar spondylosis with facet arthropathy presents today for LBP. Pain level is currently at 8 out of 10 in intensity, localized to lower aspects of his lumbar spine, constant, sharp in character with shooting pain to the buttocks bilaterally but in the lower extremities. Patient also complains of right toe tingling sensation. Pain is provoked with standing, walking and kneeling for periods of 15 minutes or more. Pain is alleviated with medications, heat which was ineffective, physical therapy in 2019, daily home stretching regimen, repositioning and rest. Interventional pain procedures completed include BL RFA L3-L5 Patient is currently on tramadol, Rosie. Patient denies any side effects of the medication(s), denies excessive drowsiness or sleepiness, denies suicidal ideation and reports that the current pain medication is helping to control the pain and improve activities of daily living. Patient denies any motor or sensory deficits. Patient denies any fever or night sweats, denies any change in the bowel movements or urination. Physical Examination: -Constitutional: Cooperative. Not in acute distress . -HEENT: Neck is supple. No lymphadenopathy. No thyromegaly. Normal thyroid size. Eyes: No ptosis , no icterus, no photophobia. ENT: No auditory deficits. Normal oropharynx. No Thrush. - Respiratory: Chest clear to auscultations bilaterally. No wheezing. No rhonchi. - Cardiovascular: Regular rate and rhythm. S1 / S2 , no S3 , no S4. - Gastrointestinal: Abdomen soft no tenderness. Bowel sounds positive in all four quadrants. No organomegaly. - Genitourinary: Deferred. - Neurologic: Cranial nerve II to XII intact. No focal neurological deficits. - Psychatric: Alert & oriented x 3. Matching mood & appropriate affect. Judgment and insight intact. - Lymphatic: No Lymphadenopathy. - Musculoskeletal: Cervical spine: Muscle bulk/ tone/ strength in the bilateral upper extremities normal Vertebral body tenderness to palpation over Facet loading test positive Thoracic spine Muscle bulk / tone/ strength in the bilateral paraspinal muscles normal Vertebral body tender to palpation over Facet loading test positive Lumbar spine: Motor bulk/ tone/ strength lower extremities , thigh and legs : 5/5 Deep tendon reflexes : Normal Knee Jerk. Normal Ankle Jerk . Vertebral body tenderness to palpation over Lumbar Facet Loading Test positive over the L4-L5, L5-S1 Straight Leg Raise: positive at 30 degrees right side/ left side Gaenslen's Test positive Sacral spine : Severe tenderness over the Sacroiliac joint: right side / left side Range of motion: Flexion of the lumbar spine <60 degrees Range of motion: Extension of the lumbar spine <20 degrees Gaenslen's Test positive Marcellus's Test positive Shahbaz test: positive right side / left side Thigh Thrust Test Sacral Thrust Test Assessment and plan: Chronic low back pain secondary to lumbar degenerative disc disease , lumbar spondylosis with facet arthropathy without myelopathy Recommendation of BL RFA L4-L5, L5-S1. Patient exhibited sufficient and satisfactory pain relief with prior procedure. Risks, benefits of procedure d iscussed and pt verbalized understanding. Denies a medical history of diabetes. Admits to Xarelto use. Protocol for discontinuation/ continuation of medications brady procedure discussed All patient questions answered MAPS reviewed and it was appropriate. I have spent 31 minutes on patient care today. Dr Patton was available by phone for the evaluation of this patient. The time was used to review the medical records including relevant urine studies and Prescription history (MAPs), review of the available imaging, evaluation and examination of the patient, coordination of care with the medical staff and if applicable referring physicians, as well as creation of the medical record - Pain Location Bilateral Lower Back Non-Pharmacological Interventions: Heat, Physical Therapy Pharmacological Interventions: Block, Scheduled Medication, Topical Medication PQRS Narrative: Smoking Status Never smoker Blood Pressure 125/70 Pain Intensity [Bilateral 8 Lower Back] Scale Used Numeric (1 - 10) Hx Alcohol Use (MH) No Home Medications: Ambulatory Orders Levothyroxine Sodium [Synthroid] 200 mcg PO DAILY 04/21/15 traMADol HCL 50 mg PO TID PRN 12/26/19 Cannabidiol (Cbd) [Epidiolex] 1 dose PO DIRECTED PRN 04/07/21 Rivaroxaban [Xarelto] 20 mg PO HS 04/07/21 lisinopriL [Prinivil] 10 mg PO HS 04/07/21 Controlled Substance Measures - Controlled Substance Measures Is patient prescribed a controlled substance at discharge?: No
== END | disposition home or self-care (01) ==
LOC: PNWHC3 07:59
PROVIDERS: ATTEND Specialist
DX: M51.26 Other intervertebral disc displacement, lumbar region (principal); M47.817 Spondylosis without myelopathy or radiculopathy, lumbosacral region; M51.17 Intervertebral disc disorders with radiculopathy, lumbosacral region
CPT/HCPCS: 99211

== ENCOUNTER 2021-12-23 06:02 | Day surgery (SDC) | payer BC ==
[2021-12-21 15:42] VITALS: BMI 31.3
[2021-12-23] MEDS ORDERED: LACTATED RINGERS 1,000 ML IV SCH (06:06)
[2021-12-23] MEDS ORDERED: LIDOCAINE 1% (10MG/ML) FOR IV START INTRADERMA PRN (06:06)
[2021-12-23 06:26] VITALS: TEMP 97
[2021-12-23] MEDS ORDERED: methylPREDNISolone ACETATE 40 MG/ML 1 ML VIAL ONE (06:54)
[2021-12-23] MEDS ORDERED: ROPIVACAINE 5MG/ML 20ML VIAL ONE (06:54)
--- NOTE | 2021-12-23 07:21 | P.PCN ---
Date of Procedure: 12/23/21 Procedure(s) Performed: PREOPERATIVE DIAGNOSIS: 1-Lumbar Spondylosis with Facet Arthropathy without myelopathy. POSTOPERATIVE DIAGNOSIS: 1- Lumbar Spondylosis with Facet Arthropathy without myelopathy. PROCEDURES : Bilateral Radiofrequency thermocoagulation, L3 , L4 , and L5 medial branch, with fluoroscopic guidance (fluoroscopy images available in the radiology department) ( to denervate the facet joint at bilateral L4-5 ,and L5-S1 levels ). ANESTHESIA: Monitored anesthesia care as per anesthesia department . EBL: Minimal PROCEDURE INDICATION: The patient with low back pain secondary to lumbar facet arthropathy who had more than 50% relief of her pain with previous diagnostic lumbar medial branch block with bupivacaine. PROCEDURE DESCRIPTION / TECHNIQUE: The patient was seen and identified in the preoperative area. Risks, benefits, complications, including but not limited to risk of infection ,bleeding , allergic reactions to the medications and no complete pain releife , and alternatives were discussed with the patient, the patient agreed to proceed with the procedure and signed the consent. IV was started. Vital signs remained stable throughout the procedure. Patient was taken to the OR and time out was completed. The patient was placed in the prone position on the procedure table. The lumber area was prepped and draped in the usual sterile fashion. . Vital signs were closely monitored during the procedure .IV sedation was used during the procedure to decrease patients anxiety. Using AP and then oblique fluoroscopy, the ``eye of the Flavio dog corresponding to the connection between the superior and transverse articular processes of right L3, L4, and L5 were identified, marked, and localized with 1% lidocaine. Subsequently, a 18 -xw radiofrequency cannula with a 10- mm active tip was advanced guided by fluoroscopy to each of the``eyes of the Flavio dog at right L3, L4, and L5. Each site then underwent sensory testing at 50 Hz and 0 to 1 volt and motor testing at 2.5 Hz and 0 to 3 volt with local stimulation, but no radicular symptoms down the legs. Thereafter each sites underwent radiofrequency thermocoagulation at 80 degrees celsius for 90 seconds after injecting 0.5 ml of PF Ropivacaine 1ml, then after the thermocoagulation done , 1 ml of the block solution containing Depo-Medrol 20 mg and 3 ml of Ropivacaine 0.5% was injected at the right L3 , L4 , and L5 , levels after negative aspiration of CSF and blood and with no paresthesias. Cannulas were retracted while injecting lidocaine 1% until the needle is out. The same procedure was repeated at the level of Left L3, L4, and L5 levels. At the end of the procedure, the skin was cleansed and bandages were applied. COMPLICATIONS: No acute complications. DISPOSITION / PLANS: The patient was placed in a supine position and transf erred to the recovery area in a stable condition for observation and was discharged from the recovery room after meeting discharge criteria. Home discharge instructions given to the patient by the staff. The patient was reexamined prior to discharge. The patient will schedule a follow up in the clinic in 2-4 weeks.
[2021-12-23] MEDS ORDERED: IV FLUID CONTINUATION 700 ML IV ONE (07:25)
[2021-12-23 07:42] VITALS: BP 112/67; PULSE 53; RESP 16
--- NOTE | 2021-12-23 07:48 | FL ---
Fluoroscopy INDICATION: Pain FINDINGS: Fluoroscopy time: 15 seconds. Images obtained: 6. IMPRESSIONS: 1. Documentation of fluoroscopy.
[2021-12-23] MEDS ORDERED: fentaNYL (PF) 50 MCG/ML 2 ML AMP ONE (11:02)
[2021-12-23] MEDS ORDERED: MIDAZOLAM 2 MG/2 ML VIAL ONE (11:02)
== END 2021-12-23 07:54 | disposition home or self-care (01) ==
LOC: ORPAIN 06:02
PROVIDERS: ATTEND Specialist
DX: M47.816 Spondylosis without myelopathy or radiculopathy, lumbar region (principal); I10 Essential (primary) hypertension; E03.9 Hypothyroidism, unspecified; Z79.890 Hormone replacement therapy; Z79.1 Long term (current) use of non-steroidal anti-inflammatories (NSAID); Z79.899 Other long term (current) drug therapy; Z96.643 Presence of artificial hip joint, bilateral; Z82.61 Family history of arthritis; Z81.1 Family history of alcohol abuse and dependence; Z83.49 Family history of other endocrine, nutritional and metabolic diseases; Z83.3 Family history of diabetes mellitus
CPT/HCPCS: 64635; 64636 ×2; J2250; J1030; J3010; J2795

== ENCOUNTER 2022-02-11 16:45 | Emergency (ER) | payer BC ==
[2022-02-11 17:19] VITALS: BP 140/80; PULSE 104; RESP 18; TEMP 98
--- NOTE | 2022-02-11 17:42 | XR ---
EXAMINATION TYPE: XR foot complete LT DATE OF EXAM: 02/11/2022 COMPARISON: NONE HISTORY: Foot pain TECHNIQUE: 3 views FINDINGS: Metatarsals are intact. I see no fracture or dislocation. There is soft tissue swelling of the forefoot. The toes appear intact. There is plantar calcaneal spurring. IMPRESSION: Soft tissue swelling. No fracture seen.
--- NOTE | 2022-02-11 18:08 | ED ---
General Adult HPI - General Chief complaint: Extremity Injury, Lower Stated complaint: foot injury Time Seen by Provider: 02/11/22 17:52 Source: patient, RN notes reviewed Mode of arrival: ambulatory Limitations: no limitations - History of Present Illness Initial comments: 61-year-old male presents to the emergency department for evaluation of injury t o the left foot. Patient states approximately 30 minutes prior to arrival he dropped a piece of MDF of his foot while working wearing sandals. States it began to bruise and swell immediately so he came in for an Xray. States his foot is throbbing but declines anything for pain. Reports pain worsens with weight bearing but is able to ambulate using a cane. Denies any loss of sensation distal to injury. No other complaints at this time. - Related Data Home Medications Medication Instructions Recorded Confirmed Levothyroxine Sodium [Synthroid] 200 mcg PO DAILY 04/21/15 01/16/22 traMADol HCL 50 mg PO TID PRN 12/26/19 01/16/22 Cannabidiol (Cbd) [Epidiolex] 1 dose PO DIRECTED PRN 04/07/21 01/16/22 Rivaroxaban [Xarelto] 20 mg PO HS 04/07/21 01/16/22 lisinopriL [Prinivil] 10 mg PO HS 04/07/21 01/16/22 Allergies Allergy/AdvReac Type Severity Reaction Status Date / Time No Known Allergies Allergy Verified 02/11/22 17:19 Review of Systems ROS Statement: Those systems with pertinent positive or pertinent negative responses have been documented in the HPI. ROS Other: All systems not noted in ROS Statement are negative. Past Medical History Past Medical History: Blood Disorder, Deep Vein Thrombosis (DVT), Hypertension, Osteoarthritis (OA), Pulmonary Embolus (PE), Thyroid Disorder Additional Past Medical History / Comment(s): DDD WITH LOWER BACK PAIN., BILATERAL PE (DECEMBER 2019), CLOTTING DISORDER (UNKNOWN NAME)., BLACKED OUT WHILE DRIVING FEB 2021-mul testing done "found nothing" History of Any Multi-Drug Resistant Organisms: None Reported Past Surgical History: Joint Replacement, Orthopedic Surgery Additional Past Surgical History / Comment(s): butch. hips replaced, RIGHT HAND- INDEX/MIDDLE FINGER sx for injury, LEFT KNEE ARTHROSCOPIC,RIGHT AND LEFT SHOULDER rotator cuff repairs Past Anesthesia/Blood Transfusion Reactions: Motion Sickness Additional Past Anesthesia/Blood Transfusion Reaction / Comment(s): Pt has never had blood transfusion. Past Psychological History: No Psychological Hx Reported Smoking Status: Never smoker Past Alcohol Use History: Rare Past Drug Use History: None Reported - Past Family History Father Family Medical History: Blood Disorder Additional Family Medical History / Comment(s): CLOTTING DISORDER General Exam Limitations: no limitations (Well-developed, well-nourished male in no acute distress. Initial temperature 98.0, pulse 104, recheck 82, respirations 18, blood pressure 140/80, pulse ox 100% on room air.) General appearance: alert, in no apparent distress Respiratory exam: Present: normal lung sounds bilaterally. Absent: respiratory distress, wheezes, rales, rhonchi, stridor Cardiovascular Exam: Present: regular rate, normal rhythm, normal heart sounds. Absent: systolic murmur, diastolic murmur, rubs, gallop, clicks Left Lower Leg exam: Present: normal inspection, full ROM. Absent: tenderness, swelling Ankle exam: Present: normal inspection, full ROM. Absent: tenderness, swelling Foot/Toe exam: Present: swelling (swelling across dorsal surface of distal foot), ecchymosis (slight bruising at midfoot). Absent: tenderness at base of 5th metatarsal Neurovascular tendon exam: Present: no vascular compromise. Absent: pulse deficit, abnormal cap refill, motor deficit, sensory deficit, tendon deficit Neurological exam: Present: alert, oriented X3 Psychiatric exam: Present: normal affect, normal mood Course Vital Signs 02/11/22 17:16 Temperature 98 F Pulse Rate 104 H Respiratory 18 Rate Blood Pressure 140/80 O2 Sat by Pulse 100 Oximetry Medical Decision Making - Medical Decision Making This is a pleasant 61-year-old male with a past medical history of chronic back pain who presents to the emergency department for evaluation of injury to left foot. Upon exam, patient is well-appearing and in no acute distress. He does have moderate swelling and slight bruising to the dorsal surface of the left dora t. There is tenderness upon palpation. Distal sensation intact. +2 pedal and posttibial pulses. X-ray was obtained owing soft tissue swelling but no acute fracture. Jt wrap was applied. Patient was placed in postop shoe for rigid sole report. He has pain medication to take at home. He will be discharged to follow up with his PCP for a recheck next week if needed. Return parameters discussed in detail. Patient verbalizes understanding and agrees with this plan. Attending: Christian. - Radiology Data Radiology results: report reviewed, image reviewed X-ray of the left foot was obtained. Report was reviewed in its entirety. Impression per Dr. Stone is soft tissue swelling. No fracture seen. Disposition Clinical Impression: Contusion of left foot Disposition: HOME SELF-CARE Condition: Stable Instructions (If sedation given, give patient instructions): Foot Contusion (ED) Additional Instructions: Apply ice for no more than 20 minutes per hour. Keep wrap in place for the next 24-48 hours. Use post-op shoe when weight bearing. May take your home medications. Follow up with your PCP for a recheck next week. Return to the emergency department with any new, worsening or concerning symptoms. Is patient prescribed a controlled substance at d/c from ED?: No Referrals: Luis Fitch DO [Primary Care Provider] - 1-2 days Time of Disposition: 18:08
== END 2022-02-12 04:05 | disposition home or self-care (01) ==
LOC: EC 16:45
DX: S90.32XA Contusion of left foot, initial encounter (principal); I10 Essential (primary) hypertension; M19.90 Unspecified osteoarthritis, unspecified site; E07.9 Disorder of thyroid, unspecified; Z86.718 Personal history of other venous thrombosis and embolism; Z79.01 Long term (current) use of anticoagulants; Z79.890 Hormone replacement therapy; Z79.899 Other long term (current) drug therapy; W20.8XXA Other cause of strike by thrown, projected or falling object, initial encounter
CPT/HCPCS: 99283

== ENCOUNTER → 2024-09-24 | Outpatient (CLI) | payer BC ==
[2024-09-24 10:16] LABS: African American GFR (CKD) >90 (>60 ml/min/1.73 sqM); Blood Urea Nitrogen 15 mg/dL (9-20); Non-African American GFR(CKD) >90 (>60 ml/min/1.73 sqM)
--- NOTE | 2024-09-24 14:28 | CT ---
EXAMINATION TYPE: CT chest wo/w con DATE OF EXAM: 09/24/2024 10:45 AM COMPARISON: 12/26/2019 . CLINICAL INDICATION: Male, 64 years old with history of R91.1 SOLITARY PULMONARY NODULE; PHH, Lung no dues, 1.6 cm LT upper lobe nodule, evaluate. TECHNIQUE: Multiple axial images were obtained through the chest before and after IV contrast adminis tration. Sagittal and coronal reformats were created for review. MIP was performed on a separate work station. Contrast used:100 mL of Isovue [address] DLP: 854.60 mGycm, Automated exposure control for dose reduction was used. FINDINGS: Heart normal size without pericardial effusion. No significant coronary artery calcifications are see n. Mild ectasia aortic root at 3.7 cm. Bovine configuration to the aortic arch. Mild atherosclerotic halle rowing at the proximal left subclavian artery and possible significant narrowing at the origin of the left vertebral artery No thoracic lymphadenopathy by CT size criteria. Lungs show no consolidation or pleural effusion. Some minimal strandy atelectasis or scarring at the inferior lingular. No suspicious pulmonary nodules identified. Tiny hiatal hernia. Suspect underlying parapelvic cyst left kidney measuring up to 3.3 cm and a nonob structive 4 mm right renal stone. Hilar splenule. Bones: Mild to moderate degenerative disc disease mid to lower thoracic spine. Moderate degenerative disc disease C6-C7 partially visualized. IMPRESSION: 1. We are unable to identify any suspicious pulmonary nodules. If persistent concern, the exam can be reviewed with directed attention if the patient's outside prior is made available. 2. No acute pulmonary process. [facility], , 09/24/2024 2:25 PM
== END | disposition home or self-care (01) ==
LOC: RADCTMAIN 09:39
PROVIDERS: ATTEND Family Medicine
DX: R91.1 Solitary pulmonary nodule (principal)
CPT/HCPCS: 82565; 84520; 71270; 36415; Q9967